=== PATIENT | female | born 1965 | race Caucasian/White ===

== ENCOUNTER 2022-02-18 01:43 | Emergency (ER) | payer SELFPAY ==
--- NOTE | 2022-02-18 01:34 | ECG_ITS ---
APPROVED REPORT Exam: Resting ECG HR:162 bpm ECG Measurements Heart Rate 162 AXES QRSd 78 QRS 89 QT 299 T 77 QTc 389 Conclusion SUPRAVENTRICULAR TACHYCARDIA NONSPECIFIC T-WAVE ABNORMALITY CRITICAL TEST RESULT UNCONFIRMED REPORT Electronically signed by : Navin Parra MD 02/18/2022 15:57:57
[2022-02-18 01:45] VITALS: BP 114/97; PULSE 150; RESP 34; TEMP 36.7; O2SAT 97; BMI 35.7
--- NOTE | 2022-02-18 01:46 | XR_ITS ---
PROCEDURE INFORMATION: Exam: XR Chest Exam date and time: 02/18/2022 1:54 AM Age: 56 years old Clinical indication: Shortness of breath; Additional info: Trouble breathing TECHNIQUE: Imaging protocol: XR of the chest. Views: 1 view. COMPARISON: No relevant prior studies available. FINDINGS: Lungs: Lordotic projection. No consolidation. No evidence of pulmonary volume overload. Pleural spaces: Unremarkable. No pleural effusion. No pneumothorax. Heart/Mediastinum: Unremarkable. No cardiomegaly. Bones/joints: Unremarkable. IMPRESSION: No acute findings.
[2022-02-18 02:12] LABS: Coronavirus 19, PCR Not Detected (NotDetected); Influenza A, PCR Not Detected (NotDetected); Influenza B, PCR Not Detected (NotDetected)
[2022-02-18 02:16] LABS: VBG Base Excess -2.3 mmol/L (-2.4-2.3); VBG HCO3 23.5 mmol/L (23-30); VBG Oxygen Saturation 98.7 % (50-70); VBG PCO2 44.2 mmol/L (35-51); VBG PH 7.34 mmol/L (7.31-7.41); VBG PO2 136.3 mmol/L (28-40); VBG Total CO2 24.8 mmol/L (23-27)
[2022-02-18 02:17] LABS: Basophils # 0.2 K/mm3 (0-0.2); Basophils % 1.1 % (0.1-2.0); Eosinophils # 0.4 K/mm3 (0.0-0.4); Eosinophils % 2.7 % (0.1-12.0); Hematocrit 46.6 % (37.0-47.0); Hemoglobin 15.2 g/dL (12.2-16.2); Lymphocytes # 2.5 K/mm3 (0.7-4.5); Lymphocytes % 15.4 % (10-50); Mean Corpuscular HGB Conc 32.6 g/dL (31.8-35.4); Mean Corpuscular Hemoglobin 29.6 pg (27.0-31.2); Mean Corpuscular Volume 90.9 fl (81-99); Mean Platelet Volume 7.5 fl (7.4-10.4); Monocytes # 0.8 K/mm3 (0.1-1.0); Monocytes % 4.9 % (1.7-9.3); Neutrophils # 12.4 K/mm3 (1.8-7.8); Neutrophils % 75.9 % (37.0-80.0); Platelet Count 480 K/mm3 (142-424); Red Blood Count 5.13 M/mm3 (4.20-5.40); Red Cell Distribution Width 12.5 % (11.5-17.5); White Blood Count 16.4 K/mm3 (4.8-10.8)
[2022-02-18 02:22] LABS: MANUAL DIFFERENTIAL MANUAL DIFFERENTIAL (MANUAL DIFF)
[2022-02-18 02:26] LABS: Alanine Aminotransferase 31 U/L (12-78); Albumin Level 4.5 g/dl (3.5-5.0); Albumin/Globulin Ratio 1.5 (1.1-1.8); Alkaline Phosphatase 76 U/L (38-126); Anion Gap 13.5 mEq/L (5-15); Aspartate Amino Transferase 29 U/L (14-36); Bilirubin,Total 0.4 mg/dl (0.2-1.3); Blood Urea Nitrogen 12 mg/dl (7-17); Calcium 8.7 mg/dl (8.4-10.2); Carbon Dioxide 26 mmol/L (22.0-30.0); Chloride 103 mmol/L (98-107); Creatinine Clearance Estimated 135 mL/min (50-200); Estimated Glomerular Filt Rate 75 ml/min (>60); GFR (African American) 90 ML/MIN (>60); Glucose 164 mg/dl (74-100); Potassium 3.5 mmoL/L (3.5-5.1); Sodium 139 mmol/L (136-145); Total Protein,Serum 7.5 g/dl (6.3-8.2)
[2022-02-18 02:30] VITALS: PULSE 83
[2022-02-18 02:30] LABS: Lymphocytes % 24 % (10-50); Monocytes % 1 % (2-9); Neutrophils % 73 % (42-76); Platelet Estimate Normal; RBC Morphology Normal; Total Cells Counted 100
--- NOTE | 2022-02-18 02:37 | HMH.EDGENADL ---
ED Disposition Clinical Impression: Asthma with exacerbation Disposition: Home, Self-Care Condition on Discharge: Fair Instructions: DI for Shortness of Breath Referrals: Navin Conde MD [Primary Care Provider] - - Critical Care Critical Care Time: Yes Attestation: On 02/18/22, the high probability of a clinically significant, sudden or life threatening deterioration of the following system(s) required my full and direct attention, intervention and personal management. The time I documented below is in addition to time spent performing reported procedures but includes the following listed in this critical care notation. Vital system(s) involved:: Respiratory Failure My critical care processes included: Assessment & monitoring of V/S, Initial and Re-exams, Data Review/Interpretation, Coordinating Care, Medication Orders and management, Documentation Medical Decision Making - Wally Inquiry Pt receiving controlled substance: No Vital Signs: 02/18/22 01:45 02/18/22 02:30 02/18/22 03:04 Temperature 98.1 F Temperature Source Temporal Artery Scan Pulse Rate 83 88 Pulse Rate [Right Brachial] 150 H Respiratory Rate 34 H Blood Pressure [Right Arm] 114/97 H Blood Pressure Mean [Right Arm] 102 Blood Pressure Source [Right Arm] Automatic Cuff Blood Pressure Position [Right Arm] Sitting 02 Sat by Pulse Oximetry 97 Oxygen Delivery Method Room Air 02/18/22 03:51 Temperature Temperature Source Pulse Rate 114 H Pulse Rate [Right Brachial] Respiratory Rate Blood Pressure [Right Arm] Blood Pressure Mean [Right Arm] Blood Pressure Source [Right Arm] Blood Pressure Position [Right Arm] 02 Sat by Pulse Oximetry Oxygen Delivery Method - Lab Data Lab Results 02/18/22 02:02: VBG pH 7.34, VBG pCO2 44.2, VBG pO2 136.3 H, VBG HCO3 23.5, VBG Total CO2 24.8, VBG O2 Saturation 98.7 H, VBG Base Excess -2.3 02/18/22 02:03: WBC 16.4 H, RBC 5.13, Hgb 15.2, Hct 46.6, MCV 90.9, MCH 29.6, MCHC 32.6, RDW 12.5, Plt Count 480 H, MPV 7.5, Neut % (Auto) 75.9, Lymph % (Auto) 15.4, [place] % (Auto) 4.9, Eos % (Auto) 2.7, Baso % (Auto) 1.1, Neut # (Auto) 12.4 H, Lymph # (Auto) 2.5, [place] # (Auto) 0.8, Eos # (Auto) 0.4, Baso # (Auto) 0.2, Total Counted 100, Neutrophils % (Manual) 73, Band Neutrophils % 2.0, Lymphocytes % (Manual) 24, Monocytes % (Manual) 1 L, Platelet Estimate Normal, RBC Morphology Normal 02/18/22 02:03: Sodium 139, Potassium 3.5, Chloride 103, Carbon Dioxide 26, Anion Gap 13.5, BUN 12, Creatinine 0.80, Estimated Creat Clear 135, Estimated GFR 75, Est GFR ( Amer) 90, Glucose 164 H, Calcium 8.7, Total Bilirubin 0.4, AST 29, ALT 31, Alkaline Phosphatase 76, Troponin I < 0.01, Total Protein 7.5, Albumin 4.5, Globulin 3.0, Albumin/Globulin Ratio 1.5 02/18/22 02:04: SARS-CoV-2 (PCR) Not detected, Influenza A Untype (PCR) Not detected, Influenza Type B (PCR) Not detected 02/18/22 04:33: Troponin I 0.02 Result diagrams: 02/18/22 02:03 02/18/22 02:03 Orders (Tests/Meds): ED MEDICATIONS Generic Name Dose Route Start Last Admin Trade Name Freq PRN Reason Stop Dose Admin Lactated Ringer's 1,000 mls @ 999 mls/hr 02/18/22 02:00 02/18/22 01:53 Lactated Ringer's 1000 Ml Bag IV 02/18/22 03:00 999 mls/hr .Q1H1M SHABNAM Administration Lactated Ringer's 1,000 mls @ 999 mls/hr 02/18/22 04:00 02/18/22 05:01 Lactated Ringer's 1000 Ml Bag IV 02/18/22 05:00 999 mls/hr .Q1H1M SHABNAM Administration Discontinued Medications Generic Name Dose Route Start Last Admin Trade Name Freq PRN Reason Stop Dose Admin Dexamethasone Sodium Phosphate 10 mg 02/18/22 01:46 02/18/22 01:53 Dexamethasone 4mg/Ml 5ml Mdv IV 02/18/22 01:47 10 mg ONCE ONE Administration Magnesium Sulfate 1 gm/ Sodium 52 mls @ 100 mls/hr 02/18/22 01:48 02/18/22 01:57 Chloride IV 02/18/22 02:19 100 mls/hr ONCE ONE Administration Magnesium Sulfate 1 gm/ Sodium 52 mls @ 100 mls/hr 02/18/22 03:58 02/18/22
[2022-02-18 02:38] LABS: Troponin I < 0.01 ng/ml (0.00-0.034)
[2022-02-18 03:04] VITALS: PULSE 88
[2022-02-18 03:51] VITALS: PULSE 110; PULSE 114
--- NOTE | 2022-02-18 04:03 | ECG_ITS ---
APPROVED REPORT Exam: Resting ECG HR:131 bpm ECG Measurements Heart Rate 131 AXES MO 142 P 69 QRSd 87 QRS 74 QT 351 T 33 QTc 428 Conclusion SINUS TACHYCARDIA NONSPECIFIC ST & T-WAVE ABNORMALITY ABNORMAL RHYTHM ECG UNCONFIRMED REPORT Electronically signed by : Navin Parra MD 02/18/2022 15:57:50
--- NOTE | 2022-02-18 04:08 | CT_ITS ---
PROCEDURE INFORMATION: Exam: CTA Chest With Contrast Exam date and time: 02/18/2022 5:27 AM Age: 56 years old Clinical indication: Shortness of breath and other: Tachycardia; Additional info: Tachycardia, shortness of breath, on estrogen ther TECHNIQUE: Imaging protocol: Computed tomographic angiography of the chest with contrast. 3D rendering (Not supervised by radiologist): MIP and/or 3D reconstructed images were created by the technologist. Radiation optimization: All CT scans at this facility use at least one of these dose optimization techniques: automated exposure control; mA and/or kV adjustment per patient size (includes targeted exams where dose is matched to clinical indication); or iterative reconstruction. Contrast material: ISOVUE 370; Contrast volume: 70 ml; Contrast route: INTRAVENOUS (IV); COMPARISON: CR XR CHEST PORTABLE 02/18/2022 1:54 AM FINDINGS: Pulmonary arteries: Normal. No pulmonary emboli. Aorta: Unremarkable. No aortic aneurysm. No aortic dissection. Lungs: Unremarkable. No consolidation. No masses. Pleural spaces: Unremarkable. No pneumothorax. No pleural effusion. Heart: Coronary atherosclerosis is present. Lymph nodes: Unremarkable. No enlarged lymph nodes. Bones/joints: Unremarkable. No acute fracture. Soft tissues: Unremarkable. IMPRESSION: 1. No evidence of pulmonary embolus or other acute process. 2. Coronary atherosclerosis.
[2022-02-18 04:59] LABS: Troponin I 0.02 ng/ml (0.00-0.034)
[2022-02-18 06:51] VITALS: BP 150/85; PULSE 118; RESP 22; TEMP 36.6; O2SAT 94
== END 2022-02-18 06:55 | disposition home or self-care (01) ==
PROVIDERS: Emergency Provider Student in an Organized Health Care Education/Training Program; PCP Family Medicine
DX: J45.901 Unspecified asthma with (acute) exacerbation (principal); Z88.8 Allergy status to other drugs, medicaments and biological substances
CPT/HCPCS: 71045; 71275; 80053; 82803; 84484; 85007; 85025; 93005; 96365; 96366; 96375; 99285; C9803; Q9967; U0003; U0005

== ENCOUNTER 2022-05-27 07:55 | Inpatient (IN) | payer OTHER, SELFPAY ==
[2022-05-27] VITALS (28 sets, daily range): BP systolic 99–140; BP diastolic 59–92; PULSE 78–142; RESP 17–36; TEMP 36.7–37.4; O2SAT 92–99; BMI 36.5; BMI 31.3; BMI 34.9
--- NOTE | 2022-05-27 | ECG_ITS ---
APPROVED REPORT Exam: Resting ECG HR:127 bpm ECG Measurements Heart Rate 127 AXES TX 127 P 76 QRSd 93 QRS 74 QT 349 T 65 QTc 424 Conclusion SINUS TACHYCARDIA ABNORMAL RHYTHM ECG UNCONFIRMED REPORT Electronically signed by : Navin Parra MD 05/27/2022 16:42:46
--- NOTE | 2022-05-27 07:57 | INFXCTL.NOTE ---
0757 PT BROUGHT IN VIA EMS. UNABLE TO ANSWER QUESTIONS AT THIS TIME. ED MD AT [facility] FOR EVALUATION AT THIS TIME
--- NOTE | 2022-05-27 08:05 | XR_ITS ---
FINAL REPORT CLINICAL HISTORY: SOB FINDINGS: SINGLE-VIEW CHEST The heart size is normal. The mediastinum is normal. The lungs are clear. There is no pneumothorax. IMPRESSION: No acute cardiopulmonary process. Reviewed, Interpreted and Dictated by Baljinder Carrizales III, MD Transcribed by Sommer Meadows Authenticated and [facility]
[2022-05-27 08:12] LABS: ABG Base Excess -2.6 mmol/L (-2.4-2.3); ABG HCO3 25.4 mmhg (22.0-26.0); ABG Oxygen Saturation 94 % (90-100); ABG PO2 93.4 mmhg (80-100); ABG TCO2 27.4 mmhg (23-27)
--- NOTE | 2022-05-27 08:13 | PC.NURSE ---
pt on bipap per ER MD request upon arrival to ED from EMS r/t resp distress
[2022-05-27 08:19] LABS: Basophils # 0.1 K/mm3 (0-0.2); Eosinophils % 7.7 % (0.1-12.0); Hematocrit 45.9 % (37.0-47.0); Hemoglobin 15.3 g/dL (12.2-16.2); Lymphocytes # 4.7 K/mm3 (0.7-4.5); Lymphocytes % 36.1 % (10-50); Mean Corpuscular HGB Conc 33.2 g/dL (31.8-35.4); Mean Corpuscular Hemoglobin 29.8 pg (27.0-31.2); Mean Corpuscular Volume 89.7 fl (81-99); Monocytes # 0.7 K/mm3 (0.1-1.0); Monocytes % 5.7 % (1.7-9.3); Neutrophils # 6.4 K/mm3 (1.8-7.8); Neutrophils % 49.5 % (37.0-80.0); Platelet Count 411 K/mm3 (142-424); Red Blood Count 5.12 M/mm3 (4.20-5.40); Red Cell Distribution Width 11.9 % (11.5-17.5); White Blood Count 12.9 K/mm3 (4.8-10.8)
--- NOTE | 2022-05-27 08:20 | PC.NURSE ---
RESPIRATORY AT BEDSIDE, PT REPORTS FEELING BETTER. C-PAP IN PLACE
[2022-05-27 08:23] LABS: ABG PCO2 66.2 mmhg (35.0-45.0); Allen's Test Acceptable; Oxygen 100 %; Source Left Radial
[2022-05-27 08:27] LABS: Alanine Aminotransferase 35 U/L (12-78); Albumin Level 4.1 g/dl (3.5-5.0); Albumin/Globulin Ratio 1.4 (1.1-1.8); Alkaline Phosphatase 76 U/L (38-126); Anion Gap 12.3 mEq/L (5-15); Aspartate Amino Transferase 40 U/L (14-36); Blood Urea Nitrogen 7 mg/dl (7-17); Calcium 8.8 mg/dl (8.4-10.2); Carbon Dioxide 28 mmol/L (22.0-30.0); Chloride 103 mmol/L (98-107); Creatinine Clearance Estimated 102 mL/min (50-200); Estimated Glomerular Filt Rate 65 ml/min (>60); GFR (African American) 79 ML/MIN (>60); Glucose 227 mg/dl (74-100); Potassium 4.3 mmoL/L (3.5-5.1); Sodium 139 mmol/L (136-145); Total Protein,Serum 7.1 g/dl (6.3-8.2)
[2022-05-27 08:28] LABS: Bilirubin,Total < 0.1 mg/dl (0.2-1.3); Lactic Acid 1.5 mmol/L (0.7-2.1)
--- NOTE | 2022-05-27 08:32 | PC.NURSE ---
pt mother at at this time
[2022-05-27 08:41] LABS: Troponin I < 0.01 ng/ml (0.00-0.034)
--- NOTE | 2022-05-27 08:53 | PC.NURSE ---
0845 CEV[address]OS PLACED AT THIS TIME, PT TOLERATED WELL. UA SENT TO LAB
--- NOTE | 2022-05-27 08:53 | PC.NURSE ---
0850 PT PLACED IN GOWN. PLAN OF CARE DISCUSSED. FAMILY AT BEDSIDE. NO NEEDS AT THIS TIME
--- NOTE | 2022-05-27 09:29 | PC.NURSE ---
ED MD AT BEDSIDE TO REEVALUATE PT
--- NOTE | 2022-05-27 09:37 | PC.NURSE ---
called physican office to contact CRISTÓBAL PATEL MD speaking to JORGE now
--- NOTE | 2022-05-27 09:40 | PC.NURSE ---
ED MD SPEAKING WITH DR. PATEL FOR ADMISSION, PT ACCEPTED
--- NOTE | 2022-05-27 09:43 | PC.NURSE ---
AARON WITH CARE MANAGEMENT NOTIFIED FOR PT ADMISSION
--- NOTE | 2022-05-27 09:46 | PC.NURSE ---
obtained covid swab
[2022-05-27 09:49] LABS: Coronavirus 19, PCR Not Detected (NotDetected); Influenza A, PCR Not Detected (NotDetected); Influenza B, PCR Not Detected (NotDetected)
--- NOTE | 2022-05-27 09:49 | HMH.EDGENADL ---
ED Disposition Clinical Impression: Asthma with exacerbation Disposition: Admitted As Inpatient Condition on Discharge: Fair Referrals: Millicent Ceron MD [Primary Care Provider] - - Critical Care Critical Care Time: Yes (40 minutes) Attestation: On 05/27/22, the high probability of a clinically significant, sudden or life threatening deterioration of the following system(s) required my full and direct attention, intervention and personal management. The time I documented below is in addition to time spent performing reported procedures but includes the following listed in this critical care notation. Total Critical Care Time: 60 Vital system(s) involved:: Respiratory Failure My critical care processes included: Assessment & monitoring of V/S, Initial and Re-exams, Data Review/Interpretation, Coordinating Care, Medication Orders and management, Documentation Medical Decision Making - Medical Records Medical records reviewed: Yes: I reviewed the patient's medical records. - Wally Inquiry Pt receiving controlled substance: No Vital Signs: 05/27/22 08:00 05/27/22 08:01 05/27/22 08:05 Temperature Temperature Source Pulse Rate 142 H 132 H Pulse Rate [Brachial] 134 H Respiratory Rate 36 H Blood Pressure Blood Pressure [Left Arm] 119/88 Blood Pressure Mean Blood Pressure Mean [Left Arm] 98 Blood Pressure Source Blood Pressure Source [Left Arm] Automatic Cuff Blood Pressure Position Blood Pressure Position [Left Arm] Sitting 02 Sat by Pulse Oximetry 99 98 Oxygen Delivery Method BiPAP CPAP 05/27/22 08:30 05/27/22 08:37 05/27/22 08:50 Temperature 99.4 F Temperature Source Rectal Pulse Rate 136 H 136 H 130 H Pulse Rate [Brachial] Respiratory Rate 22 28 H Blood Pressure 140/92 H 140/92 H Blood Pressure [Left Arm] Blood Pressure Mean 106 Blood Pressure Mean [Left Arm] Blood Pressure Source Automatic Cuff Blood Pressure Source [Left Arm] Blood Pressure Position Sitting Blood Pressure Position [Left Arm] 02 Sat by Pulse Oximetry 99 99 Oxygen Delivery Method CPAP 05/27/22 09:01 05/27/22 09:30 Temperature Temperature Source Pulse Rate 124 H 123 H Pulse Rate [Brachial] Respiratory Rate 22 18 Blood Pressure 113/88 126/89 Blood Pressure [Left Arm] Blood Pressure Mean 98 104 Blood Pressure Mean [Left Arm] Blood Pressure Source Blood Pressure Source [Left Arm] Blood Pressure Position Blood Pressure Position [Left Arm] 02 Sat by Pulse Oximetry 98 96 Oxygen Delivery Method - Lab Data Lab results reviewed: Yes: I reviewed the patient's lab results. Lab Results 05/27/22 08:10: WBC 12.9 H, RBC 5.12, Hgb 15.3, Hct 45.9, MCV 89.7, MCH 29.8, MCHC 33.2, RDW 11.9, Plt Count 411, MPV 7.0 L, Neut % (Auto) 49.5, Lymph % (Auto) 36.1, [place] % (Auto) 5.7, Eos % (Auto) 7.7, Baso % (Auto) 1.0, Neut # (Auto) 6.4, Lymph # (Auto) 4.7 H, [place] # (Auto) 0.7, Eos # (Auto) 1.0 H, Baso # (Auto) 0.1 05/27/22 08:10: Sodium 139, Potassium 4.3, Chloride 103, Carbon Dioxide 28, Anion Gap 12.3, BUN 7, Creatinine 0.90, Estimated Creat Clear 102, Estimated GFR 65, Est GFR ( Amer) 79, Glucose 227 H, Calcium 8.8, Total Bilirubin < 0.1 L, AST 40 H, ALT 35, Alkaline Phosphatase 76, Troponin I < 0.01, Total Protein 7.1, Albumin 4.1, Globulin 3.0, Albumin/Globulin Ratio 1.4 05/27/22 08:10: Lactate 1.5 05/27/22 08:10: Specimen Source Left radial, O2 % 100, ABG pH 7.20 L*, ABG pCO2 66.2 H, ABG pO2 93.4, ABG HCO3 25.4, ABG Total CO2 27.4 H, ABG O2 Saturation 94, ABG Base Excess -2.6 L, Ronald Test Acceptable 05/27/22 08:10: NT-Pro-B Natriuret Pep 40.0 Result diagrams: 05/27/22 08:10 05/27/22 08:10 Orders (Tests/Meds): ED MEDICATIONS Generic Name Dose Route Start Last Admin Trade Name Freq PRN Reason Stop Dose Admin Sodium Chloride 10 ml 05/27/22 08:08 Sodium Chloride 0.9% 10ml Flush Syringe IV 06/26/22 08:07 NEEDED PRN Maintain IV Site
--- NOTE | 2022-05-27 10:18 | HMH.PHAINT ---
MEDICATION RECONCILIATION COMPLETED ON PATIENT USING EXTERNAL FILL HISTORY FROM PHARMACY. -PAOLA CARTER, JENSD
[2022-05-27 10:33] LABS: Microscopic, Urine URINE MICROSCOPIC (MICROSCOPIC)
[2022-05-27 10:37] LABS: Appearance,Urine CLEAR (Clear); Bilirubin,Urine Negative (Negative); Blood, Urine Negative (Negative); Color,Urine YELLOW (Yellow); Glucose,Urine (UA) Negative (Negative); Ketones,Urine Negative (Negative); Leukocyte Esterase,Urine Negative (Negative); Nitrate,Urine POSITIVE (Negative); Protein,Urine 2+ (Negative); Specific Gravity, Urine >= 1.030 (1.005-1.030); Urobilinogen,Urine 0.2 EU/dl (0.2)
--- NOTE | 2022-05-27 10:55 | PC.NURSE ---
RT called per ER MD request to start to try to wean pt off of bipap, pt is waking up and has been talking
--- NOTE | 2022-05-27 11:00 | PC.NURSE ---
RESPIRATORY AT BEDSIDE
[2022-05-27 11:04] LABS: Bacteria,Urine 1+ /lpf; Squamous Epithelial Cell,Urine Occasional #/hpf (0-5); WBC,Urine Occasional #/hpf (0-3)
--- NOTE | 2022-05-27 11:05 | PC.NURSE ---
pt currently on 3L per NC at this time per RT staff
--- NOTE | 2022-05-27 11:35 | PC.NURSE ---
1135 PT RESTING IN BED, O2 AT 3L/NC. TOLERATING WELL. FAMILY AT BEDSIDE. UPDATED ON POC. CALL LIGHT WITHIN REACH
[2022-05-27 12:20] LABS: Troponin I 0.12 ng/ml (0.00-0.034)
--- NOTE | 2022-05-27 12:23 | PC.NURSE ---
rounded on pt at this time, assisted pt to sit up to be able to drink some water. Pt states no other needs at this time. Updated pt that we are still waiting on a room assignment for admission for pt. Will notify when a room assignment has been given
--- NOTE | 2022-05-27 14:11 | PC.NURSE ---
ATTEMPTED TO GIVE REPORT AT THIS TIME, UNABLE TO AT THIS TIME
--- NOTE | 2022-05-27 14:24 | PC.NURSE ---
report given to joann buck rn at this time
--- NOTE | 2022-05-27 14:35 | PC.NURSE ---
Updated mother and pt on POC. Report had been called and pt would be going up to room shortly.
--- NOTE | 2022-05-27 14:43 | PC.NURSE ---
PT BEING TRANSPORTED UPSTAIRS FOR IN-PATIENT TREATMENT
--- NOTE | 2022-05-27 15:10 | HMH.HP ---
*Admission Date: 05/27/22 *Chief complaint: Shortness of breath *History of present illness: Sonam Molina is a 56-year-old with a history of asthma who presented to the emergency room extremely short of breath. She states her breathing difficulties began about a week ago with increased air pollen. Usually using her inhaler adequately treats the exacerbation. Patient denies having chest pain. She has occasional palpitations with the use of her albuterol. Patient was brought in by EMS and symptoms were described as being severe. They used CPAP in route with only minimal improvement.Duo nebs were also administered prior to ED arrival. She appeared in severe distress upon arrival to the ER. She could only speak in one-word responses. She was gradually weaned to oxygen at 3 L/min. She was found to have a fever At 99.4. Laboratory results showed a white blood cell count of 12,900. ABGs revealed a pH of 7.2 PCO2 of 66.2 PO2 of 93.4 and bicarb of 25.4. Electrolytes and renal function were normal. Chest x-ray showed no acute process. She was admitted with respiratory failure. At the time of this exam patient does exhibit some dyspnea with conversation. She denies chest pain. She feels that she is breathing better. [facility] History Medical History: Reports:: Asthma Denies:: Diabetes Mellitus Type 1, Diabetes Mellitus Type 2 *Have you ever received a pneumonia vaccine?: Yes *Have you received a flu vaccine this season?: Yes - *Social History Smoking Status: Never smoker Alcohol Intake: never *Occupational Status:: disabled Housing: house Household Members: family *Travel in the last 8 weeks: None Family Hx:: Heart Attack Review of Systems - Constitutional Denies fever(s) - Eyes Denies change in vision - ENT Reports nasal congestion, Denies dizziness, Denies ear pain, Denies sore throat - *Cardiovascular Reports shortness of breath, Denies chest pain - *Respiratory Reports chest congestion, Reports cough, Reports shortness of breath, Denies coughing up blood - *Gastrointestinal Denies abdominal pain, Denies loose stools, Denies nausea, Denies vomiting - *Genitourinary Denies difficulty urinating - *Musculoskeletal Denies abnormal walking - *Neurologic Denies abnormal walking, Denies abnormal speech, Denies confusion, Denies seizure-like activity, Denies dizziness Meds Home Medications Medication Instructions Recorded Confirmed Type Albuterol Sulfate [Albuterol 2 puff IH Q4HP PRN 05/27/22 05/27/22 History Sulfate Hfa] Estrogens, Conjugated [Premarin] 2.5 mg PO DAILY 05/27/22 05/27/22 History Medroxyprogesterone Acetate 10 mg PO DIRECTED 05/27/22 05/27/22 History Mometasone/Formoterol [Dulera 200 2 puff IH BID 05/27/22 05/27/22 History Mcg/5 Mcg Inhaler] atenoloL [Atenolol 50mg Tab] 100 mg PO DAILY 05/27/22 05/27/22 History Allergies Allergy/AdvReac Type Severity Reaction Status Date / Time aspirin Allergy Unknown Unknown Verified 05/27/22 10:28 allergy reaction ibuprofen Allergy Unknown Unknown Verified 05/27/22 10:28 allergy reaction montelukast [From Singulair] Allergy Unknown Unknown Verified 05/27/22 10:28 allergy reaction NSAIDS (Non-Steroidal Allergy Unknown Unknown Verified 05/27/22 10:28 Anti-Inflamma allergy reaction TRENALIN Allergy Unknown Unknown Uncoded 05/27/22 10:28 allergy reaction Exam Vital signs and Labs for Last 24 Hours: Temp Pulse Resp BP Pulse Ox 98.0 F 94 H 17 115/59 L 96 05/27/22 14:56 05/27/22 14:56 05/27/22 14:56 05/27/22 14:56 05/27/22 14:56 Laboratory Results - last 24 hr 05/27/22 08:10: WBC 12.9 H, RBC 5.12, Hgb 15.3, Hct 45.9, MCV 89.7, MCH 29.8, MCHC 33.2, RDW 11.9, Plt Count 411, MPV 7.0 L, Neut % (Auto) 49.5, Lymph % (Auto) 36.1, [place] % (Auto) 5.7, Eos % (Auto) 7.7, Baso % (Auto) 1.0, Neut # (Auto) 6.4, Lymph # (Auto) 4.7 H, [place] # (Auto) 0.7, Eos # (Auto) 1.0 H, Baso # (Auto) 0.1 0
--- NOTE | 2022-05-27 16:30 | PC.NURSE ---
PT IS RESTING IN BED. NO COMPLAINTS OF PAIN OR SOA. PT DOES APPEAR SOMEWHAT DYSNEIC WHILE TALKING. ALERT AND ORIENTED X4. PT HAS REQUESTED TO EAT. REGULAR DIET ORDERED PER PHYSICIAN. LUNG SOUNDS DIMINISHED WITH SCATTERED WHEEZES. CATHETER DRAINING AT BEDSIDE. ABDOMEN SOFT/NON TENDER WITH ACTIVE BOWEL SOUNDS. NO SWELLING NOTED TO BLE. WILL CONTINUE TO MONITOR.
[2022-05-28] VITALS (10 sets, daily range): BP systolic 119–157; BP diastolic 67–94; PULSE 74–104; RESP 16–18; TEMP 36.5–37.1; O2SAT 90–98
--- NOTE | 2022-05-28 06:00 | XR_ITS ---
FINAL REPORT CLINICAL HISTORY: SOB COMPARISON: May 27, 2022 FINDINGS: Two views of the chest were obtained. The heart size and pulmonary vascularity are within normal limits. The mediastinum is normal. No acute pulmonary abnormality is identified. There is no pneumothorax. The bony thorax is intact. IMPRESSION: No active cardiopulmonary disease. Reviewed, Interpreted and Dictated by Baljinder Carrizales III, MD Transcribed by Baldomero Coelho Authenticated and [facility]
--- NOTE | 2022-05-28 06:00 | PC.NURSE ---
Patient rested throughout shift. Patient complaint of SOB at start of shift prn nebs added see jan. Expiatory ad inspiratory wheezing noted. Patient sating well on 3l nc. Patient seems to be doing much better. Ramon cath in place.
[2022-05-28 06:42] LABS: Eosinophils % 0.1 % (0.1-12.0); Hematocrit 42.4 % (37.0-47.0); Hemoglobin 13.9 g/dL (12.2-16.2); Lymphocytes # 0.8 K/mm3 (0.7-4.5); Lymphocytes % 5.4 % (10-50); Mean Corpuscular HGB Conc 32.8 g/dL (31.8-35.4); Mean Corpuscular Hemoglobin 29.4 pg (27.0-31.2); Mean Corpuscular Volume 89.5 fl (81-99); Mean Platelet Volume 6.9 fl (7.4-10.4); Monocytes # 0.4 K/mm3 (0.1-1.0); Monocytes % 2.3 % (1.7-9.3); Neutrophils # 13.9 K/mm3 (1.8-7.8); Neutrophils % 92.1 % (37.0-80.0); Platelet Count 327 K/mm3 (142-424); Red Blood Count 4.74 M/mm3 (4.20-5.40); Red Cell Distribution Width 12.1 % (11.5-17.5); White Blood Count 15.1 K/mm3 (4.8-10.8)
[2022-05-28 06:43] LABS: MANUAL DIFFERENTIAL MANUAL DIFFERENTIAL (MANUAL DIFF)
[2022-05-28 06:50] LABS: Alanine Aminotransferase 34 U/L (12-78); Albumin Level 3.7 g/dl (3.5-5.0); Albumin/Globulin Ratio 1.3 (1.1-1.8); Alkaline Phosphatase 63 U/L (38-126); Aspartate Amino Transferase 39 U/L (14-36); Blood Urea Nitrogen 10 mg/dl (7-17); Carbon Dioxide 28 mmol/L (22.0-30.0); Chloride 103 mmol/L (98-107); Creatinine Clearance Estimated 142 mL/min (50-200); Estimated Glomerular Filt Rate 87 ml/min (>60); GFR (African American) 106 ML/MIN (>60); Globulin 2.9 g/dL (1.3-3.2); Glucose 150 mg/dl (74-100); Sodium 137 mmol/L (136-145); Total Protein,Serum 6.6 g/dl (6.3-8.2)
[2022-05-28 06:54] LABS: Bilirubin,Total < 0.1 mg/dl (0.2-1.3)
[2022-05-28 06:55] LABS: Lymphocytes % 10 % (10-50); Neutrophils % 90 % (42-76); Total Cells Counted 100
[2022-05-28 06:56] LABS: Platelet Estimate Normal
--- NOTE | 2022-05-28 07:20 | ECG_ITS ---
APPROVED REPORT Exam: Resting ECG HR:102 bpm ECG Measurements Heart Rate 102 AXES W[place] 143 P 50 QRSd 94 QRS 45 QT 409 T 18 QTc 468 Conclusion SINUS TACHYCARDIA POSSIBLE INFERIOR MYOCARDIAL INFARCTION , PROBABLY OLD [30 ms Q WAVE IN II/aVF] ABNORMAL RHYTHM ECG UNCONFIRMED REPORT Electronically signed by : Navin Parra MD 05/29/2022 21:04:09
--- NOTE | 2022-05-28 07:22 | HMH.PHAVTE ---
[facility] Pharmacy VTE Monitoring - Patient Demographics Admission date: 05/27/22 Report Date: 05/28/22 Time: : Allergies/Adverse Reactions: Patient Allergies aspirin Allergy (Unknown, Verified 05/27/22 10:28) Unknown allergy reaction ibuprofen Allergy (Unknown, Verified 05/27/22 10:28) Unknown allergy reaction montelukast [From Singulair] Allergy (Unknown, Verified 05/27/22 10:28) Unknown allergy reaction NSAIDS (Non-Steroidal Anti-Inflamma Allergy (Unknown, Verified 05/27/22 10:28) Unknown allergy reaction Fish Containing Products Allergy (Verified 05/27/22 17:24) TRENALIN Allergy (Unknown, Uncoded 05/27/22 10:28) Unknown allergy reaction Height: 1.68 m Weight: 98.174 kg Patient Problems: Current Active Problems Asthma with exacerbation (Acute) Respiratory failure (Acute) - VTE Risk Labs: VTE Related Lab Results Hgb 13.9 g/dL (12.2-16.2) 05/28/22 06:12 Hct 42.4 % (37.0-47.0) 05/28/22 06:12 Plt Count 327 K/mm3 (142-424) 05/28/22 06:12 BUN 10 mg/dl (7-17) D 05/28/22 06:12 Creatinine 0.70 mg/dl (0.52-1.04) D 05/28/22 06:12 Estimated Creat Clear 142 mL/min (50-200) 05/28/22 06:12 VTE Score: 4 VTE Risk Level: Low Risk - Prophylaxis VTE Prophylaxis Ordered?: Yes Types of VTE Prophylaxis: TEDS Knee High, Pharmacological Location of Applied Device: Bilateral Lower Extremeties Pharmacologic Type: Enoxaparin
[2022-05-28 07:54] LABS: Troponin I 0.08 ng/ml (0.00-0.034)
--- NOTE | 2022-05-28 09:25 | CA_ITS ---
APPROVED REPORT EXAM: Comprehensive 2D, Doppler, and color-flow Echocardiogram Millinery Copyist: Bisi Fuentes RT(R) Ht: 5 ft 6 in Wt: 216lbs BSA: 2.07 BP: 115/59 mmHg Indications: SOA, HTN, Obesity, asthma, dizziness 2D Dimensions LVOT 1.86 cm (M/F) 1.5-2.5 LVEF (Richards's) 63.80 % F: 54 - 74 LV Volume 89.00 mL F: 46 - 106 LV Volume Index 43.20 mL/m2 F: 29 - 61 LA Volume 17.70 mL LA Volume Index 8.59 mL/m2 (M/F) 16-34 M-Mode Dimensions RVDd 2.89 cm (0.9-2.6) LA Diam 3.15 cm (1.9-4.0) LVDd 4.05 cm (3.5-5.7) Ao Diam 2.78 cm (2.0-3.7) LVDs 2.37 cm (3.5-5.7) IVSd 0.96 cm (0.6-1.1) PWd 1.00 cm (0.6-1.1) EF (Teich) 73.00% FS 41.50% EDV (Teich) 72.10 mL ESV (Teich) 19.50 mL LV Diastology E Decel Time 203.00 (160-240 msec) E/A Ratio 0.8 MED E' 9.40 (< 7 cm/sec) E'/MED E' Ratio 11.52 (>14) Mitral Valve MV E Max Daquan. 108.00 (40-130 cm/s) MV A Velocity 143.00 (40-130 cm/s) E/A Ratio 0.76 MV Decel. Time 203.00 (160-240 ms) MV PHT 60.00 ms Left Ventricle Left atrium is mildly enlarged, left ventricle is normal size, mild concentric left ventricular hypertrophy, estimated ejection fraction 55% with no regional wall motion abnormality, grade 1 diastolic dysfunction seen without tissue Doppler evidence of raise left atrial pressure. Right Ventricle Right atrium and right ventricle are mildly enlarged with normal contractility. Aortic Valve Aortic valve is minimally thickened and fibrosed there is no aortic stenosis or aortic insufficiency. Mitral Valve Mitral valve grossly normal, there is trace mitral regurgitation. Tricuspid Valve Tricuspid valve grossly normal, there is trace tricuspid regurgitation, tricuspid regurgitation jet velocity is inadequate for calculation of the right ventricular systolic pressure. Pulmonic Valve Pulmonic valve is poorly visualized. Great Vessels Aortic root is normal size. Inferior vena cava is poorly visualized. Pericardium No significant pericardial effusion noted. Conclusion 1. Mild biatrial enlargement, normal left ventricular size, mild concentric left ventricular hypertrophy, estimated ejection fraction 55% with no regional wall motion abnormality, grade 1 diastolic dysfunction seen without tissue Doppler evidence of raise left atrial pressure. 2. Mildly enlarged right ventricle with normal contractility. 3. Trace mitral and tricuspid regurgitation. 4. No significant pericardial effusion. 5. Inferior vena cava is poorly visualized. Electronically signed by : Delta Weston MD 05/28/2022 21:15:12
--- NOTE | 2022-05-28 09:28 | HMH.PULMCON ---
*Admission Date: 05/27/22 *Reason for consult:: Acute hypoxic respiratory failure, asthma exacerbation *History of present illness: Patient's prefers to identify as she her Ms. HE is a 56-year-old female with a prior history of asthma presented to the ER complaining of worsening respiratory distress low-grade fever leukocytosis respiratory acidosis. History of asthma with acute exacerbation, symptoms for the last 4 to 5 days gradually worsening, slightly improved with inhalers at ambulation treatments however not significantly improving. Symptoms worsens with exertion. [facility] History Medical History: Reports:: Asthma Denies:: Diabetes Mellitus Type 1, Diabetes Mellitus Type 2 *Have you ever received a pneumonia vaccine?: Yes *Have you received a flu vaccine this season?: Yes - *Social History Smoking Status: Never smoker Alcohol Intake: never *Occupational Status:: disabled Housing: house Household Members: family *Travel in the last 8 weeks: None Family Hx:: Heart Attack Meds Home Medications Medication Instructions Recorded Confirmed Type Albuterol Sulfate [Albuterol 2 puff IH Q4HP PRN 05/27/22 05/27/22 History Sulfate Hfa] Estrogens, Conjugated [Premarin] 2.5 mg PO DAILY 05/27/22 05/27/22 History Medroxyprogesterone Acetate 10 mg PO DIRECTED 05/27/22 05/27/22 History Mometasone/Formoterol [Dulera 200 2 puff IH BID 05/27/22 05/27/22 History Mcg-5 Mcg Inhaler] atenoloL [Atenolol 50mg Tab] 100 mg PO DAILY 05/27/22 05/27/22 History diphenhydrAMINE HCL [Benadryl] 50 mg PO Q4HP PRN 05/27/22 05/27/22 History Ipratropium/Albuterol Sulfate 3 ml IH Q6H #120 each 06/01/22 Rx [Duoneb 3mL neb] levoFLOXacin [Levaquin 750mg 750 mg PO DAILY #5 tab 06/01/22 Rx tablet] predniSONE [Prednisone 20mg 20 mg PO DIRECTED #36 tab 06/01/22 Rx Tab] Allergies Allergy/AdvReac Type Severity Reaction Status Date / Time aspirin Allergy Unknown Unknown Verified 05/27/22 10:28 allergy reaction ibuprofen Allergy Unknown Unknown Verified 05/27/22 10:28 allergy reaction montelukast [From Singulair] Allergy Unknown Unknown Verified 05/27/22 10:28 allergy reaction NSAIDS (Non-Steroidal Allergy Unknown Unknown Verified 05/27/22 10:28 Anti-Inflamma allergy reaction Fish Containing Products Allergy Verified 05/27/22 17:24 TRENALIN Allergy Unknown Unknown Uncoded 05/27/22 10:28 allergy reaction Internal Medicine - CN: Reslt - Labs CBC & Chem 7: 05/28/22 06:12 05/28/22 06:12 Labs: Short CBC 05/28/22 Range/Units 06:12 WBC 15.1 H (4.8-10.8) K/mm3 Hgb 13.9 (12.2-16.2) g/dL Hct 42.4 (37.0-47.0) % Plt Count 327 (142-424) K/mm3 BMP 05/28/22 06:12 Sodium 137 Potassium 4.0 Chloride 103 Carbon Dioxide 28 BUN 10 D Creatinine 0.70 D Glucose 150 H D Calcium 9.0 Cardiac Enzymes 05/27/22 05/28/22 Range/Units 11:45 06:12 Troponin I 0.12 H 0.08 H (0.00-0.034) ng/ml Liver Function 05/28/22 Range/Units 06:12 Total Bilirubin < 0.1 L (0.2-1.3) mg/dl AST 39 H (14-36) U/L ALT 34 (12-78) U/L Alkaline Phosphatase 63 (38-126) U/L Albumin 3.7 (3.5-5.0) g/dl Urine 05/27/22 Range/Units 08:45 Urine Color Yellow (Yellow) Urine Appearance Clear (Clear) Urine pH 5.0 (5.0-8.5) Ur Specific [place] >= 1.030 (1.005-1.030) Urine Protein 2+ (Negative) Urine Glucose (UA) Negative (Negative) - ABG Interpretation ABG results: 05/27/22 08:10 ABG pH 7.20 L* ABG pCO2 66.2 H ABG pO2 93.4 ABG HCO3 25.4 ABG Total CO2 27.4 H ABG O2 Saturation 94 ABG Base Excess -2.6 L Assessment and Plan (1) Respiratory failure Status: Acute Category: Medical Code(s): J96.90 - Respiratory failure, unspecified, unspecified whether with hypoxia or hypercapnia (2) Asthma with exacerbation Status: Acute Category: Medical Code(s): J45.901 - Unspecifi
--- NOTE | 2022-05-28 09:36 | HMH.CNCARD ---
History of Present Illness Consult date: 05/28/22 Requesting physician: Ck Luciano Consult reason: shortness of breath Chief complaint: soa, elevated trop, asthma exacerbation Additional Medical History:: Past Medical Hx Identifies as transgender, uses she/her pronouns Asthma History of present illness: 56 year old white transgender female presented to hospital yesterday with complaint of acute asthma exacerbation. Reports long hx of severe asthma requiring multiple hospital admissions. States she began to have soa and increased wheezing a week ago which she attributes to increase pollen. Became more severe yesterday requiring EMS transport to hospital. Upon presentation patient was requiring cpap. Temp was 99.4, WBC was 12,900, ABGs pH 7.2, PCO2 66.2, Po2 93.4, bicarb 25.4. Chest xray was negative for acute process. Trop was elevated at 0.12 and has since trended down to 0.08. EKG negative for ischemic changes. Cardiology was asked to consult for elevated trop. Patient denies any chest pain, states this is like previous asthma attacks. Currently resting comfortably on GA. [facility] History Medical History: Reports:: Asthma Denies:: Diabetes Mellitus Type 1, Diabetes Mellitus Type 2 *Have you ever received a pneumonia vaccine?: Yes *Have you received a flu vaccine this season?: Yes - *Social History Smoking Status: Never smoker Alcohol Intake: never *Occupational Status:: disabled Housing: house Household Members: family *Travel in the last 8 weeks: None Family Hx:: Heart Attack Meds Home Medications Medication Instructions Recorded Confirmed Type Albuterol Sulfate [Albuterol 2 puff IH Q4HP PRN 05/27/22 05/27/22 History Sulfate Hfa] Estrogens, Conjugated [Premarin] 2.5 mg PO DAILY 05/27/22 05/27/22 History Medroxyprogesterone Acetate 10 mg PO DIRECTED 05/27/22 05/27/22 History Mometasone/Formoterol [Dulera 200 2 puff IH BID 05/27/22 05/27/22 History Mcg/5 Mcg Inhaler] atenoloL [Atenolol 50mg Tab] 100 mg PO DAILY 05/27/22 05/27/22 History diphenhydrAMINE HCL [Benadryl] 50 mg PO Q4HP PRN 05/27/22 05/27/22 History Allergies Allergy/AdvReac Type Severity Reaction Status Date / Time aspirin Allergy Unknown Unknown Verified 05/27/22 10:28 allergy reaction ibuprofen Allergy Unknown Unknown Verified 05/27/22 10:28 allergy reaction montelukast [From Singulair] Allergy Unknown Unknown Verified 05/27/22 10:28 allergy reaction NSAIDS (Non-Steroidal Allergy Unknown Unknown Verified 05/27/22 10:28 Anti-Inflamma allergy reaction Fish Containing Products Allergy Verified 05/27/22 17:24 TRENALIN Allergy Unknown Unknown Uncoded 05/27/22 10:28 allergy reaction Exam Vital signs and Labs for Last 24 Hours: Temp Pulse Resp BP Pulse Ox 98.1 F 99 H 18 130/78 94 L 05/28/22 07:17 05/28/22 07:17 05/28/22 07:17 05/28/22 07:17 05/28/22 07:17 Laboratory Results - last 24 hr 05/27/22 08:45: Urine Color Yellow, Urine Appearance Clear, Urine pH 5.0, Ur Specific [place] >= 1.030, Urine Protein 2+, Urine Glucose (UA) Negative, Urine Ketones Negative, Urine Blood Negative, Urine Nitrate Positive, Urine Bilirubin Negative, Urine Urobilinogen 0.2, Ur Leukocyte Esterase Negative, Urine RBC None, Urine WBC Occasional, Ur Squamous Epith Cells Occasional, Urine Bacteria 1+ 05/27/22 09:41: SARS-CoV-2 (PCR) Not detected, Influenza A Untype (PCR) Not detected, Influenza Type B (PCR) Not detected 05/27/22 11:45: Troponin I 0.12 H 05/28/22 06:12: WBC 15.1 H, RBC 4.74, Hgb 13.9, Hct 42.4, MCV 89.5, MCH 29.4, MCHC 32.8, RDW 12.1, Plt Count 327, MPV 6.9 L, Neut % (Auto) 92.1 H, Lymph % (Auto) 5.4 L, [place] % (Auto) 2.3, Eos % (Auto) 0.1, Baso % (Auto) 0.0 L, Neut # (Auto) 13.9 H, Lymph # (Auto) 0.8, [place] # (Auto) 0.4, Eos # (Auto) 0.0, Baso # (Auto) 0.0, Total Counted 100, Neutrophils % (Manual) 90 H, Lymphocytes % (Manual) 10, Platelet Estimate Normal 05/28/22 06:12: Sodium 137
--- NOTE | 2022-05-28 09:39 | PC.NURSE ---
RESP CARE NOTE: Pt placed on room air, SPO2 at 98% on 3 lpm nc via oral airway. Will continue to monitor patient.
--- NOTE | 2022-05-28 09:51 | CA_ITS ---
FINAL REPORT CLINICAL HISTORY: soa, DVT r/o FINDINGS: Color Doppler, duplex Doppler and compression sonography of the bilateral lower extremities was performed. There is no evidence of deep venous thrombosis from the level of the groin to the calf. The deep veins are patent and compressible. IMPRESSION: No evidence of deep venous thrombosis bilateral lower extremities. Reviewed, Interpreted and Dictated by Baljinder Carrizales III, MD Transcribed by Nayely Solano Authenticated and [facility]
--- NOTE | 2022-05-28 10:13 | HMH.ACPN2 ---
Internal Medicine - PN: Subj *Date: 05/28/22 *Time: 10:13 Interval history: Patient slept some last night. The Benadryl really helped his drainage which allowed him to rest better. He is wheezing more today. He states this is due to all the pollen in the air outside. He was able to eat breakfast.Repeat laboratory data this morning CBC with a white blood cell count of 15,100 hemoglobin is 13.9 hematocrit 42.4. Blood chemistries electrolytes and renal function are normal. Repeat chest x-ray this morning showed no acute changes. Exam Vital signs and Labs for Last 24 Hours: Temp Pulse Resp BP Pulse Ox 98.1 F 77 18 130/78 98 05/28/22 07:17 05/28/22 09:37 05/28/22 07:17 05/28/22 07:17 05/28/22 09:37 Laboratory Results - last 24 hr 05/27/22 08:45: Urine Color Yellow, Urine Appearance Clear, Urine pH 5.0, Ur Specific [place] >= 1.030, Urine Protein 2+, Urine Glucose (UA) Negative, Urine Ketones Negative, Urine Blood Negative, Urine Nitrate Positive, Urine Bilirubin Negative, Urine Urobilinogen 0.2, Ur Leukocyte Esterase Negative, Urine RBC None, Urine WBC Occasional, Ur Squamous Epith Cells Occasional, Urine Bacteria 1+ 05/27/22 09:41: SARS-CoV-2 (PCR) Not detected, Influenza A Untype (PCR) Not detected, Influenza Type B (PCR) Not detected 05/27/22 11:45: Troponin I 0.12 H 05/28/22 06:12: WBC 15.1 H, RBC 4.74, Hgb 13.9, Hct 42.4, MCV 89.5, MCH 29.4, MCHC 32.8, RDW 12.1, Plt Count 327, MPV 6.9 L, Neut % (Auto) 92.1 H, Lymph % (Auto) 5.4 L, [place] % (Auto) 2.3, Eos % (Auto) 0.1, Baso % (Auto) 0.0 L, Neut # (Auto) 13.9 H, Lymph # (Auto) 0.8, [place] # (Auto) 0.4, Eos # (Auto) 0.0, Baso # (Auto) 0.0, Total Counted 100, Neutrophils % (Manual) 90 H, Lymphocytes % (Manual) 10, Platelet Estimate Normal 05/28/22 06:12: Sodium 137, Potassium 4.0, Chloride 103, Carbon Dioxide 28, Anion Gap 10.0, BUN 10 D, Creatinine 0.70 D, Estimated Creat Clear 142, Estimated GFR 87, Est GFR ( Amer) 106 D, Glucose 150 H D, Calcium 9.0, Total Bilirubin < 0.1 L, AST 39 H, ALT 34, Alkaline Phosphatase 63, Total Protein 6.6, Albumin 3.7, Globulin 2.9, Albumin/Globulin Ratio 1.3 05/28/22 06:12: Troponin I 0.08 H I & O for Last 24 hours: Intake & Output 05/25/22 05/26/22 05/27/22 05/28/22 11:59 11:59 11:59 11:59 Intake Total 840 / 840 Output Total 2620 / 2620 Balance -1780 / -1780 Weight 200 lb 216 lb 7 oz - Constitutional no acute distress - *Routine Respiratory Exam Present: wheezes (Inspiratory and expiratory scattered throughout) - *Routine Cardiovascular Exam Present: RRR - *Routine Abdominal Exam Present: soft, normoactive bowel sounds. Absent: tenderness - *Routine Extremities Exam Present: pulses intact. Absent: edema, calf tenderness - *Routine Neurological Exam Present: alert, oriented X3 Assessment and Plan (1) Respiratory failure Status: Acute Category: Medical Code(s): J96.90 - Respiratory failure, unspecified, unspecified whether with hypoxia or hypercapnia (2) Asthma with exacerbation Status: Acute Category: Medical Code(s): J45.901 - Unspecified asthma with (acute) exacerbation (3) Elevated troponin Status: Acute Category: Medical Code(s): R77.8 - Other specified abnormalities of plasma proteins (4) Elevated troponin Status: Acute Category: Medical Code(s): R77.8 - Other specified abnormalities of plasma proteins - Assessment and plan all Dx Assessment and Plan for all problems:: Cardiology has seen the pt with the following: Assessment and Plan for all problems:: Myocardial injury -In the presence of acute asthma exacerbation, denies chest pain -Trops trending down -Denies chest pain -Recommend outpatient stress testing as needed. Acute respiratory failure/Hx of asthma - Appears to be acute asthma exacerbation however, given patient's hx of estrogen use would consider PE r/o. Will get echo to evaluate for right heart strain. - Will get lower extre
--- NOTE | 2022-05-28 11:08 | HMH.PULMCON ---
*Admission Date: 05/27/22 *Reason for consult:: Acute hypoxic respiratory failure, asthma exacerbation *History of present illness: Patient's prefers to identify as she/her Ms. He is a 56-year-old with a prior history of asthma presented to the ER complaining of worsening respiratory distress low-grade fever leukocytosis respiratory acidosis. [facility] History Medical History: Reports:: Asthma Denies:: Diabetes Mellitus Type 1, Diabetes Mellitus Type 2 *Have you ever received a pneumonia vaccine?: Yes *Have you received a flu vaccine this season?: Yes - *Social History Smoking Status: Never smoker Alcohol Intake: never *Occupational Status:: disabled Housing: house Household Members: family *Travel in the last 8 weeks: None Family Hx:: Heart Attack ROS - Cons Reports fatigue, Denies fever(s) - Eyes Denies change in vision - ENT Denies difficulty swallowing - Card Reports shortness of breath, Reports shortness of breath with activity - Resp Respiratory: Reports cough, Denies excessive phlegm production, Reports cough with sputum production, Reports wheezing - GI Gastrointestingal: Denies: abdominal pain - [place] Musculoskeletal: Denies muscle weakness - Psych Denies thoughts of hurting/killing others, Denies thoughts of hurting/killing yourself Meds Home Medications Medication Instructions Recorded Confirmed Type Albuterol Sulfate [Albuterol 2 puff IH Q4HP PRN 05/27/22 05/27/22 History Sulfate Hfa] Estrogens, Conjugated [Premarin] 2.5 mg PO DAILY 05/27/22 05/27/22 History Medroxyprogesterone Acetate 10 mg PO DIRECTED 05/27/22 05/27/22 History Mometasone/Formoterol [Dulera 200 2 puff IH BID 05/27/22 05/27/22 History Mcg/5 Mcg Inhaler] atenoloL [Atenolol 50mg Tab] 100 mg PO DAILY 05/27/22 05/27/22 History diphenhydrAMINE HCL [Benadryl] 50 mg PO Q4HP PRN 05/27/22 05/27/22 History Allergies Allergy/AdvReac Type Severity Reaction Status Date / Time aspirin Allergy Unknown Unknown Verified 05/27/22 10:28 allergy reaction ibuprofen Allergy Unknown Unknown Verified 05/27/22 10:28 allergy reaction montelukast [From Singulair] Allergy Unknown Unknown Verified 05/27/22 10:28 allergy reaction NSAIDS (Non-Steroidal Allergy Unknown Unknown Verified 05/27/22 10:28 Anti-Inflamma allergy reaction Fish Containing Products Allergy Verified 05/27/22 17:24 TRENALIN Allergy Unknown Unknown Uncoded 05/27/22 10:28 allergy reaction Exam - Constitutional Constitutional:: Present: no acute distress - HENMT Exam HENMT: Present: normocephalic - Eye Exam Eyes:: Present: normal appearance both eyes and related structures - Neck Exam Neck:: Present: normal visual inspection - Respiratory Exam Respiratory:: Present: able to speak in complete sentences, no respiratory distress, wheezing - Cardiovascular Exam Cardiac:: Present: S1, S2 - GI Exam GI:: Present: soft - Skin Exam Skin: Present: warm - Neurological Exam Neurological: Present: alert - Extremities Exam Extremities: Present: no cyanosis, no clubbing - Psychiatric Exam Psychiatric: Present: normal affect, appearance grossly normal Internal Medicine - CN: Reslt - Labs CBC & Chem 7: 05/28/22 06:12 05/28/22 06:12 Labs: Short CBC 05/28/22 Range/Units 06:12 WBC 15.1 H (4.8-10.8) K/mm3 Hgb 13.9 (12.2-16.2) g/dL Hct 42.4 (37.0-47.0) % Plt Count 327 (142-424) K/mm3 [facility] 05/28/22 06:12 Sodium 137 Potassium 4.0 Chloride 103 Carbon Dioxide 28 BUN 10 D Creatinine 0.70 D Glucose 150 H D Calcium 9.0 Cardiac Enzymes 05/27/22 05/28/22 Range/Units 11:45 06:12 Troponin I 0.12 H 0.08 H (0.00-0.034) ng/ml Liver Function 05/28/22 Range/Units 06:12 Total Bilirubin < 0.1 L (0.2-1.3) mg/dl AST 39 H (14-36) U/L ALT 34 (12-78) U/L Alkaline Phosphatase 63 (38-126) U/L Albumin 3.7 (3.5-5.0) g/dl - ABG I
--- NOTE | 2022-05-28 12:57 | PC.NURSE ---
received report on pt. pt in bed resting at this time.
--- NOTE | 2022-05-28 15:33 | PC.NURSE ---
pt has onhal
--- NOTE | 2022-05-28 15:33 | PC.NURSE ---
pt has inhaler from home at bedside, pt reports she has not used it today and does know to let nurse know if she uses it.
--- NOTE | 2022-05-28 17:00 | PC.NURSE ---
pt took 2 puffs of home inhaler
--- NOTE | 2022-05-28 17:49 | PC.NURSE ---
pt has done well majority of shift. pt had an episode of tachypnic and stated she felt like she was about to have an asthma attack, RT gave breathing tx dr. Kinney was notified. iv in L hand patent SL. iv in R HAND DC. personal inhaler at bedside, used once during tachypnic episode. pt up as marissa, alert X4, O2 @ 3L NC. pt is now resting in bed with no complaints at this time.
[2022-05-29] VITALS (22 sets, daily range): BP systolic 126–160; BP diastolic 71–88; PULSE 95–133; RESP 6–22; TEMP 36.4–37.1; O2SAT 88–97; BMI 35.1
--- NOTE | 2022-05-29 04:52 | PC.NURSE ---
Pt is alert and oriented, pt has been restless throughout the night. Pt is tolerating 3L NC with O2 sat >90%. Pt has complained of nausea this shift, treated prn per jan. Pt has received prn tanner treatments, see mar. Lung sounds bilaterally inspiratory/expiratory wheezing, pt states she feels really tight. Pt has ambulated to the bathroom independently.
--- NOTE | 2022-05-29 06:58 | XR_ITS ---
FINAL REPORT CLINICAL HISTORY: acute SOB COMPARISON: 05/28/2022 FINDINGS: SINGLE-VIEW CHEST The heart size is normal. The mediastinum is normal. There are mild worsening opacities in the right lung base consistent with pneumonia or atelectasis. There is no pneumothorax. IMPRESSION: Right lung base pneumonia versus atelectasis. Reviewed, Interpreted and Dictated by Baljinder Carrizales III, MD Transcribed by Sommer Meadows Authenticated and [facility]
--- NOTE | 2022-05-29 07:00 | PC.NURSE ---
Patient complaining of SOB and airway tightness. Patient given duo neb less then 30 min ago by RT. RT contacted prn albuterol tx given. Patient still stating he can not breath pageанна Kinney. New orders of ativan 0.5mg IV now, retimed 125mg solu medrol too now, stat chest xray.
[2022-05-29 07:34] LABS: ABG Base Excess -1.3 mmol/L (-2.4-2.3); ABG HCO3 26.6 mmhg (22.0-26.0); ABG Oxygen Saturation 97 % (90-100); ABG PH 7.21 mmol/L (7.35-7.45); ABG PO2 107.9 mmhg (80-100); ABG TCO2 28.7 mmhg (23-27)
[2022-05-29 07:37] LABS: Allen's Test acceptable; Oxygen 5 %
[2022-05-29 07:39] LABS: Source Right Radial
[2022-05-29 07:40] LABS: ABG PCO2 68.6 mmhg (35.0-45.0)
--- NOTE | 2022-05-29 08:28 | HMH.ACPN2 ---
Internal Medicine - PN: Subj *Date: 05/29/22 *Time: 08:28 Interval history: Patient is not doing well this morning. She has been in status asthmaticus. Pulmonology was called and recommended to continue her Xopenex neb for 1 hour. She is also been given steroids and some Ativan. Exam Vital signs and Labs for Last 24 Hours: Temp Pulse Resp BP Pulse Ox 97.8 F 119 H 20 160/88 H 88 L 05/29/22 03:25 05/29/22 06:38 05/29/22 03:25 05/29/22 03:25 05/29/22 06:02 Laboratory Results - last 24 hr 05/29/22 07:32: Specimen Source Right radial, O2 % 5, Ronald Test acceptable I & O for Last 24 hours: Intake & Output 05/26/22 05/27/22 05/28/22 05/29/22 11:59 11:59 11:59 11:59 Intake Total 840 / 840 240 / 240 Output Total 2620 / 2620 Balance -1780 / -1780 240 / 240 Weight 200 lb 216 lb 7 oz 218 lb 11.177 oz Microbiology Reports for the Last 24 Hours: Microbiology 05/27/22 08:10 Blood Blood Culture - Preliminary NO GROWTH AFTER 48 HOURS 05/27/22 08:10 Blood Blood Culture - Preliminary NO GROWTH AFTER 48 HOURS - Constitutional mild distress - *Routine Respiratory Exam Present: decreased breath sounds, wheezes (Throughout) - *Routine Cardiovascular Exam Present: RRR - *Routine Abdominal Exam Present: soft, normoactive bowel sounds. Absent: tenderness - *Routine Extremities Exam Absent: cyanosis, clubbing, edema - *Routine Skin Exam Present: warm. Absent: rash - *Routine Neurological Exam Drowsy from Ativan Assessment and Plan (1) Respiratory failure Status: Acute Category: Medical Code(s): J96.90 - Respiratory failure, unspecified, unspecified whether with hypoxia or hypercapnia (2) Asthma with exacerbation Status: Acute Category: Medical Code(s): J45.901 - Unspecified asthma with (acute) exacerbation (3) Elevated troponin Status: Acute Category: Medical Code(s): R77.8 - Other specified abnormalities of plasma proteins (4) Elevated troponin Status: Acute Category: Medical Code(s): R77.8 - Other specified abnormalities of plasma proteins - Assessment and plan all Dx Assessment and Plan for all problems:: Respiratory therapy is currently in the room with the patient giving continuous neb treatment. The patient has had 1 dose of Solu-Medrol. Pulmonology to follow and will discuss further care with Dr. Luciano.
--- NOTE | 2022-05-29 09:29 | HMH.PULMPN ---
Internal Medicine - PN: Subj *Date: 05/29/22 *Time: 10:56 Interval history: Acute worsening respiratory distress. Uncontrolled symptoms and frequent hypoxic episodes. Exam - Constitutional Constitutional:: Absent: no acute distress, comfortable - HENMT Exam HENMT: Present: normocephalic - Eye Exam Eyes:: Present: normal appearance both eyes and related structures - Neck Exam Neck:: Present: normal visual inspection - Respiratory Exam Respiratory:: Present: respiratory distress, wheezing - Cardiovascular Exam Cardiac:: Present: S1, S2 - GI Exam GI:: Present: soft - Skin Exam Skin: Present: warm, no rash - Neurological Exam Neurological: Present: awake. Absent: normal cognition - Extremities Exam Extremities: Present: no cyanosis, no clubbing, no edema Assessment and Plan (1) Respiratory failure Status: Acute Category: Medical Code(s): J96.90 - Respiratory failure, unspecified, unspecified whether with hypoxia or hypercapnia (2) Asthma with exacerbation Status: Acute Category: Medical Code(s): J45.901 - Unspecified asthma with (acute) exacerbation (3) Elevated troponin Status: Acute Category: Medical Code(s): R77.8 - Other specified abnormalities of plasma proteins (4) Elevated troponin Status: Acute Category: Medical Code(s): R77.8 - Other specified abnormalities of plasma proteins - Assessment and plan all Dx Assessment and Plan for all problems:: #Acute Asthma exacerbation: #Acute on chronic hypoxic respiratory failure: 56-year-old transgender prefers to be called as he or she, history of asthma with most recent exacerbation from February 2022 presented with worsening respiratory With cough and wheezing which appears to be usual asthma exacerbation. Patient on admission noted to be in hypercarbic patient is here respiratory status improved, weaned to room air this morning. Chest continues to show mild expiratory predominantly on the left lower lung simms. Denies any frequent exacerbations prior to February 2022. Never been intubated for asthma exacerbation. 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 Patient CTA from February showed prominent right upper lobe bronchial thickening along with micronodular tree-in-bud opacities concerning for ABPA was made with continued frequent asthma exacerbations. Chest x-ray from this admission did not show any acute airspace disease. Lower extremity Doppler negative for DVT. Interval update: Asthma uncontrolled, frequent respiratory distress events overnight. A Patient is having life-threatening respiratory distress and acute asthma exacerbation. ABG from this morning showed worsening hypercarbic respiratory failure with a pH of 7.20 PCO2 68.6. PO2 now at 107. X-ray showed concerning bilateral lower lobe airspace disease prominent on the right side Patient awake but appears lethargic not appropriately following commands. We will aggressively treat with nebulization therapies noninvasive ventilator therapy and if continue to worsen then will proceed with intubation mechanical ventilatory support. Auscultation bilateral diffuse wheezing. Plan: -ABG in 1 hr -Levalbuterol 1.25 inhalation therapy every one hour. -Ipratropium every 4 hours along with budesonide every 12 scheduled -Methylprednisolone 60 mg every 6 hours -Magnesium sulfate 2g Once -Follow with CT PE -Continue BiPAP therapy now at 12/, with minute ventilation -Change antibiotics to ceftriaxone and azithromycin -F/U Aspergillus IgE and IgG Ab #Total critical care time spent on this patient is 35 minutes managing acute hypoxic respiratory failure needingnon-invasive ventilation. This time spent include reviewing test results including interpreting chest x-rays, labs and arterial blood gas, optimizing the NIV settings,formulating plan of care, discussing the plan of care with the team and the nursing staff.
--- NOTE | 2022-05-29 09:51 | CT_ITS ---
FINAL REPORT CLINICAL HISTORY: decreased respiratory function FINDINGS: Thin section axial CT images of the chest were obtained with contrast. 3D reformatted images were also obtained. This study was performed with techniques to keep radiation doses as low as reasonably achievable (ALARA). Individualized dose reduction techniques using automated exposure control or adjustment of mA and/or kV according to the patient's size were employed. Motion artifact obscures the lower lobe branches. There is no evidence of pulmonary embolism. There is no evidence of thoracic aortic aneurysm or dissection. There is no evidence of mediastinal or hilar mass or adenopathy. There is no evidence of pulmonary mass or nodule. There are bibasilar opacities, favor atelectasis over pneumonia. Limited images of the upper abdomen reveal multiple gallstones. There is a partially imaged probable small cyst in the medial segment of the left hepatic lobe measuring 12 mm IMPRESSION: No evidence of pulmonary embolism. Cholelithiasis. Probable small cyst in the left hepatic lobe. Reviewed, Interpreted and Dictated by Baljinder Carrizales III, MD Transcribed by [facility] Authenticated and [facility]
[2022-05-29 11:09] LABS: ABG Base Excess 0.2 mmol/L (-2.4-2.3); ABG HCO3 25.1 mmhg (22.0-26.0); ABG Oxygen Saturation 97 % (90-100); ABG PCO2 42.1 mmhg (35.0-45.0); ABG PH 7.39 mmol/L (7.35-7.45); ABG PO2 100.2 mmhg (80-100); ABG TCO2 26.4 mmhg (23-27)
[2022-05-29 11:13] LABS: Allen's Test ACCEPTABLE; Oxygen 40 %; Source Left Radial; Vent Rate 14
--- NOTE | 2022-05-29 12:07 | PC.NURSE ---
pt back to floor
--- NOTE | 2022-05-29 17:54 | PC.NURSE ---
Patient on bipap for most of shift. Patoient able to arouse and follow commands when asked but otherwise patient was asleep. New IV obtained, CTA obtained and indicates no pulmonary embolism. VS stable despite being not given PO pills due to patient's work of breathing and oxygen status. Patient able to wake up near end of shift. alert and oriented and no complaints noted.
[2022-05-30] VITALS (20 sets, daily range): BP systolic 132–165; BP diastolic 68–100; PULSE 78–107; RESP 14–20; TEMP 36.4–36.6; O2SAT 89–97; BMI 34.9
--- NOTE | 2022-05-30 03:56 | PC.NURSE ---
PT. HAS C/O DIZZINESS AND FULLNESS IN HEAD WELL NAUSEA; ADMINISTERED ZOFRAN AND BENADYL PER MAR; MILD EFFECTIVENESS REPORTED. INSPIRATORY AND EXPIRATORY WHEEZING T/O CLIFF LUNGS. INTERMITTENT NON PRODUCTIVE COUGH REPORTED. RA 88-89%; BIPAP O2 SAT 94-96%; PT. HAS NOT C/O SOA THUS FAR THIS SHIFT.
--- NOTE | 2022-05-30 08:39 | P.PN_ITS ---
Internal Medicine - PN: Subj *Date: 05/30/22 *Time: 09:50 Interval history: Patient states she was feeling well until she was taken off of the BiPAP this morning. She began having wheezing and increasing shortness of breath just like she did yesterday. She did not think she had a breathing treatment yet this morning, but respiratory has been giving them every 2 hours through the BIPAP. Exam Vital signs and Labs for Last 24 Hours: Temp Pulse Resp BP Pulse Ox 97.8 F 98 H 20 158/95 H 94 L 05/30/22 07:34 05/30/22 08:10 05/30/22 07:34 05/30/22 07:34 05/30/22 08:10 Laboratory Results - last 24 hr 05/29/22 11:10: Specimen Source Left radial, O2 % 40, ABG pH 7.39, ABG pCO2 42.1, ABG pO2 100.2 H, ABG HCO3 25.1, ABG Total CO2 26.4, ABG O2 Saturation 97, ABG Base Excess 0.2, Ronald Test Acceptable, Vent Rate 14, PEEP Bipap 12/6 I & O for Last 24 hours: Intake & Output 05/27/22 05/28/22 05/29/22 05/30/22 11:59 11:59 11:59 11:59 Intake Total 840 / 840 240 / 240 950 / 950 Output Total 2620 / 2620 0 / 0 Balance -1780 / -1780 240 / 240 950 / 950 Weight 200 lb 216 lb 7 oz 218 lb 11.177 oz 217 lb 4 oz Microbiology Reports for the Last 24 Hours: Microbiology 05/27/22 08:10 Blood Blood Culture - Preliminary NO GROWTH AFTER 48 HOURS 05/27/22 08:10 Blood Blood Culture - Preliminary NO GROWTH AFTER 48 HOURS - Constitutional no acute distress - *Routine Respiratory Exam Present: rhonchi, wheezes - *Routine Cardiovascular Exam Present: RRR - *Routine Abdominal Exam Present: soft, normoactive bowel sounds. Absent: tenderness - *Routine Extremities Exam Absent: cyanosis, clubbing, edema - *Routine Skin Exam Present: warm. Absent: rash - *Routine Neurological Exam Present: alert, oriented X3 Assessment and Plan (1) Respiratory failure Status: Acute Category: Medical Code(s): J96.90 - Respiratory failure, unspecified, unspecified whether with hypoxia or hypercapnia (2) Asthma with exacerbation Status: Acute Category: Medical Code(s): J45.901 - Unspecified asthma with (acute) exacerbation (3) Elevated troponin Status: Acute Category: Medical Code(s): R77.8 - Other specified abnormalities of plasma proteins (4) Elevated troponin Status: Acute Category: Medical Code(s): R77.8 - Other specified ab normalities of plasma proteins - Assessment and plan all Dx Assessment and Plan for all problems:: Patient is due a neb this morning. Respiratory has been called to go ahead and give the neb treatment. She is also receiving IV steroids. Pulmonology to follow.
--- NOTE | 2022-05-30 09:34 | HMH.PULMPN ---
Internal Medicine - PN: Subj *Date: 05/30/22 *Time: 10:41 Interval history: No acute respiratory vents overnight. Stable respiratory status. Exam - Constitutional Constitutional:: Present: no acute distress, comfortable - HENMT Exam HENMT: Present: normocephalic - Eye Exam Eyes:: Present: normal appearance both eyes and related structures - Neck Exam Neck:: Present: normal visual inspection - Respiratory Exam Respiratory:: Present: able to speak in complete sentences, respiratory distress, wheezing - Cardiovascular Exam Cardiac:: Present: S1, S2 - GI Exam GI:: Present: soft - Skin Exam Skin: Present: warm, no rash - Neurological Exam Neurological: Present: alert, awake - Extremities Exam Extremities: Present: no cyanosis, no clubbing, no edema Assessment and Plan (1) Respiratory failure Status: Acute Category: Medical Code(s): J96.90 - Respiratory failure, unspecified, unspecified whether with hypoxia or hypercapnia (2) Asthma with exacerbation Status: Acute Category: Medical Code(s): J45.901 - Unspecified asthma with (acute) exacerbation (3) Elevated troponin Status: Acute Category: Medical Code(s): R77.8 - Other specified abnormalities of plasma proteins (4) Elevated troponin Status: Acute Category: Medical Code(s): R77.8 - Other specified abnormalities of plasma proteins - Assessment and plan all Dx Assessment and Plan for all problems:: #Acute Asthma exacerbation: #Acute on chronic hypoxic respiratory failure: 56-year-old transgender prefers to be called as he or she, history of asthma with most recent exacerbation from February 2022 presented with worsening respiratory With cough and wheezing which appears to be usual asthma exacerbation. Patient on admission noted to be in hypercarbic patient is here respiratory status improved, weaned to room air this morning. Chest continues to show mild expiratory predominantly on the left lower lung simms. Denies any frequent exacerbations prior to February 2022. Never been intubated for asthma exacerbation. 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 Patient CTA from February showed prominent right upper lobe bronchial thickening along with micronodular tree-in-bud opacities concerning for ABPA was made with continued frequent asthma exacerbations. Chest x-ray from this admission did not show any acute airspace disease. Lower extremity Doppler negative for DVT. Interval update: ABG improved. Weaned to nasal cannula. Auscultation improved. CTA no evidence of pulmonary embolism. Bilateral lower lobe bronchial thickening and airspace disease no dense consolidation Plan: -Levalbuterol 1.25 and Ipratropium every 4 hours along with budesonide every 12 scheduled -Methylprednisolone 60 mg every 6 hours -Ceftriaxone and azithromycin -F/U Aspergillus IgE and IgG Ab #Thank you for involving pulmonary in this patient care. We will continue to follow.
--- NOTE | 2022-05-30 09:52 | PC.NURSE ---
RESP CARE NOTE: Pt reported that she hadn't had any nebs this AM. As per recorded, patient has received nebs every 2 hours since yesterday. Pt states she forgot that she has had them, and doesn't remember yesterday at all. We went over all events over the last 24 hours, and all testing and treatment she has received in those 24 hours. Will continue to monitor patient closely.
[2022-05-31] VITALS (13 sets, daily range): BP systolic 123–166; BP diastolic 73–100; PULSE 73–90; RESP 16–20; TEMP 36.4–36.9; O2SAT 89–98; BMI 34.9
--- NOTE | 2022-05-31 04:00 | PC.NURSE ---
no changes from previous assessment, pt awake most of night, VSS, lungs with bilateral wheezing, 02 sats remain 97% on 3L pnc, pt complains of sinus drainage and medicated with benadryl for comfort. no other issues or concerns at this time.
--- NOTE | 2022-05-31 08:45 | HMH.ACPN2 ---
Internal Medicine - PN: Subj *Date: 05/31/22 *Time: 08:45 Interval history: Patient states she is feeling better today. She slept throughout the night and has less wheezing. She slept on nasal oxygen and was able to tolerate some breakfast this morning. She denies any pain. Exam Vital signs and Labs for Last 24 Hours: Temp Pulse Resp BP Pulse Ox 97.5 F L 75 20 166/100 H 97 05/31/22 04:00 05/31/22 05:18 05/31/22 04:00 05/31/22 04:00 05/31/22 05:18 Laboratory Results - last 24 hr 05/29/22 07:32: ABG pH 7.21 L*, ABG pCO2 68.6 H, ABG pO2 107.9 H, ABG HCO3 26.6 H, ABG Total CO2 28.7 H, ABG O2 Saturation 97, ABG Base Excess -1.3, ABG Lactate 3.0 H I & O for Last 24 hours: Intake & Output 05/28/22 05/29/22 05/30/22 05/31/22 11:59 11:59 11:59 11:59 Intake Total 840 / 840 240 / 240 950 / 950 300 / 300 Output Total 2620 / 2620 0 / 0 0 / 0 Balance -1780 / -1780 240 / 240 950 / 950 300 / 300 Weight 216 lb 7 oz 218 lb 11.177 oz 217 lb 4 oz 217 lb - Constitutional no acute distress - *Routine Respiratory Exam Present: rhonchi, wheezes - *Routine Cardiovascular Exam Present: RRR - *Routine Abdominal Exam Present: soft, normoactive bowel sounds. Absent: tenderness - *Routine Extremities Exam Absent: cyanosis, clubbing, edema - *Routine Skin Exam Present: warm. Absent: rash - *Routine Neurological Exam Present: alert, oriented X3 Assessment and Plan (1) Respiratory failure Status: Acute Category: Medical Code(s): J96.90 - Respiratory failure, unspecified, unspecified whether with hypoxia or hypercapnia (2) Asthma with exacerbation Status: Acute Category: Medical Code(s): J45.901 - Unspecified asthma with (acute) exacerbation (3) Elevated troponin Status: Acute Category: Medical Code(s): R77.8 - Other specified abnormalities of plasma proteins (4) Elevated troponin Status: Acute Category: Medical Code(s): R77.8 - Other specified abnormalities of plasma proteins - Assessment and plan all Dx Assessment and Plan for all problems:: Patient improving. Pulmonology to follow.
--- NOTE | 2022-05-31 09:26 | HMH.PULMPN ---
Internal Medicine - PN: Subj *Date: 05/31/22 *Time: 11:56 Interval history: No acute respiratory events overnight. Exam - Constitutional Constitutional:: Present: no acute distress - HENMT Exam HENMT: Present: normocephalic, atraumatic - Eye Exam Eyes:: Present: normal appearance both eyes and related structures - Neck Exam Neck:: Present: normal visual inspection - Respiratory Exam Respiratory:: Present: able to speak in complete sentences, no respiratory distress, wheezing - Cardiovascular Exam Cardiac:: Present: S1, S2 - GI Exam GI:: Present: soft - Skin Exam Skin: Present: warm, no rash - Neurological Exam Neurological: Present: alert, awake - Extremities Exam Extremities: Present: no cyanosis, no clubbing, no edema Assessment and Plan (1) Respiratory failure Status: Acute Category: Medical Code(s): J96.90 - Respiratory failure, unspecified, unspecified whether with hypoxia or hypercapnia (2) Asthma with exacerbation Status: Acute Category: Medical Code(s): J45.901 - Unspecified asthma with (acute) exacerbation (3) Elevated troponin Status: Acute Category: Medical Code(s): R77.8 - Other specified abnormalities of plasma proteins (4) Elevated troponin Status: Acute Category: Medical Code(s): R77.8 - Other specified abnormalities of plasma proteins - Assessment and plan all Dx Assessment and Plan for all problems:: #Acute Asthma exacerbation: #Acute on chronic hypoxic respiratory failure: 56-year-old transgender prefers to be called as he or she, history of asthma with most recent exacerbation from February 2022 presented with worsening respiratory With cough and wheezing which appears to be usual asthma exacerbation. Patient on admission noted to be in hypercarbic patient is here respiratory status improved, weaned to room air this morning. Chest continues to show mild expiratory predominantly on the left lower lung simms. Denies any frequent exacerbations prior to February 2022. Never been intubated for asthma exacerbation. 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 Patient CTA from February showed prominent right upper lobe bronchial thickening along with micronodular tree-in-bud opacities concerning for ABPA was made with continued frequent asthma exacerbations. Chest x-ray from this admission did not show any acute airspace disease. Lower extremity Doppler negative for DVT. Patient hospital course was complicated by worsening asthma exacerbation using mag sulfate and BiPAP therapy with ABG showing hypercarbic respiratory failure. Patient has been receiving methylprednisolone along with frequent nebulization therapies that eventually improved her respiratory status. Interval update: No acute respiratory vents overnight. Plan: - -Duo Nebs Q6 hrs scheduled -Prednisone 60mg oral daily x 5 days followed by 40mg x7 days, 20x7 days and discontinue -Ceftriaxone and azithromycin, can be weaned to levofloxacin to complete a total of 5-day course -F/U Aspergillus IgE and IgG Ab, collected still pending #Thank you for involving pulmonary in this patient care. We will follow the patient in pulmonary clinic in 7 to 10 days post discharge
--- NOTE | 2022-05-31 15:14 | CARE MANAGER ---
Current Medications Acetaminophen (Acetaminophen 500mg Tab) 1,000 mg PO Q6HP PRN PRN Reason: Fever or Mild Pain Stop: 06/27/22 00:02 Atenolol (Atenolol 50mg Tablet) 100 mg PO DAILY SHABNAM Stop: 06/27/22 08:59 Last Admin: 05/31/22 09:35 Dose: 100 mg Documented by: Azithromycin (Azithromycin 250mg Tablet) 500 mg PO Q24H SHABNAM Stop: 06/03/22 11:30 Budesonide (Budesonide 0.5mg/2ml Neb) 0.5 mg IH BIDRT [facility] Stop: 06/28/22 17:59 Last Admin: 05/31/22 05:12 Dose: 0.5 mg Documented by: Diphenhydramine HCl (Diphenhydramine 50mg Capsule) 50 mg PO Q6HP PRN PRN Reason: Itching Stop: 06/27/22 00:03 Last Admin: 05/31/22 04:25 Dose: 50 mg Documented by: Enoxaparin Sodium (Enoxaparin 40mg/0.4ml Syringe) 40 mg SQ DAILY [facility] Stop: 06/27/22 08:59 Last Admin: 05/31/22 09:34 Dose: 40 mg Documented by: Famotidine (Famotidine 20mg Tablet) 40 mg PO DAILY [facility] Stop: 06/27/22 08:59 Last Admin: 05/31/22 09:35 Dose: 40 mg Documented by: Ceftriaxone Sodium 1 gm/ (Sodium Chloride) 50 mls @ 100 mls/hr IV 0900 SHABNAM Stop: 06/12/22 08:59 Last Admin: 05/31/22 09:35 Dose: 100 mls/hr Documented by: Ipratropium Kinney (Ipratropium Kinney 0.5 Mg/2.5ml Solution) 0.5 mg IH Q6RT [facility]NAM Stop: 06/30/22 11:59 Last Admin: 05/31/22 13:15 Dose: 0.5 mg Documented by: Levalbuterol HCl (Levalbuterol 1.25mg/3ml Neb) 1.25 mg IH Q2HP PRN PRN Reason: Shortness Of Breath Or Wheezing Stop: 06/29/22 10:39 Levalbuterol HCl (Levalbuterol 1.25mg/3ml Neb) 1.25 mg IH Q6RT SHABNAM Stop: 06/30/22 11:59 Last Admin: 05/31/22 13:15 Dose: 1.25 mg Documented by: Ondansetron HCl (Ondansetron 4mg/2ml Vial) 4 mg IV Q8HP PRN PRN Reason: Nausea Stop: 06/27/22 00:03 Last Admin: 05/31/22 06:10 Dose: 4 mg Documented by: Prednisone (Prednisone 20mg Tab) 60 mg PO DAILY [facility] Stop: 06/06/22 08:59 Fluticasone/Salmeterol (Fluticasone/Salmeterol 500/50mcg Diskus) 1 puff IH BIDRT [facility] Stop: 06/27/22 17:59 Last Admin: 05/31/22 09:40 Dose: 1 puff Documented by: Sodium Chloride (Sodium Chloride 0.9% 10ml Flush Syringe) 10 ml IV NEEDED PRN PRN Reason: Maintain IV Site Stop: 06/26/22 08:07 Last Admin: 05/30/22 04:57 Dose: 10 ml Documented by:
[2022-05-31 16:12] LABS: Strongyloides IgG Antibody Negative (Negative)
--- NOTE | 2022-05-31 16:35 | CARE MANAGER ---
Notified by Dr. Kinney today that patient will be ready for discharge tomorrow 06/01 if he remains stable over night. He will need a nebulizer machine at discharge, patient choice signed for [facility]. Order faxed and machine is scheduled to be delivered here this afternoon.
--- NOTE | 2022-05-31 16:50 | PC.NURSE ---
Patient has rested with eyes closed most of the day. From 0915-11am patient O2 sat range from 89-93 without Oxygen. No s/s of acute respiratory distress noted; her BP elevated at 1200 post administering Methylprednisolone asymptomatic; will continue to monitor.
[2022-06-01] VITALS: BP 163/98; PULSE 78; PULSE 80; RESP 16; TEMP 36.7; O2SAT 95
[2022-06-01 03:51] VITALS: BP 160/90; PULSE 75; RESP 18; TEMP 36.6; O2SAT 90
[2022-06-01 04:00] VITALS: PULSE 80
--- NOTE | 2022-06-01 04:02 | PC.NURSE ---
Pt has rested intermittently throughout shift. Pt has remained on RA thus far in shift with O2 90-95%. Pt had no s/s of respiratory distress or voiced any SOA throughout shift. Lung sounds in left throughout are expiratory wheezing. Pt's b/p has been elevated this shift, Pt has remained non symptomatic, paged project controls scheduler, no new orders received.
[2022-06-01 05:00] VITALS: BMI 35.5
[2022-06-01 06:08] VITALS: PULSE 76; PULSE 78; O2SAT 92
[2022-06-01 07:59] VITALS: BP 158/91; PULSE 79; RESP 18; TEMP 36.4; O2SAT 93
[2022-06-01 08:00] VITALS: PULSE 80; O2SAT 93
--- NOTE | 2022-06-01 09:32 | HMH.ACPN2 ---
Internal Medicine - PN: Subj *Date: 06/01/22 *Time: 09:32 Interval history: No respiratory difficulties overnight. Has remained on room air with sats running 90 to 95% Exam Vital signs and Labs for Last 24 Hours: Temp Pulse Resp BP Pulse Ox 97.6 F 79 18 158/91 H 93 L 06/01/22 07:59 06/01/22 07:59 06/01/22 07:59 06/01/22 07:59 06/01/22 07:59 Laboratory Results - last 24 hr 05/28/22 06:12: Strongyloides IgG Ab Negative I & O for Last 24 hours: Intake & Output 05/29/22 05/30/22 05/31/22 06/01/22 11:59 11:59 11:59 11:59 Intake Total 240 / 240 950 / 950 540 / 540 1510 / 1510 Output Total 0 / 0 0 / 0 Balance 240 / 240 950 / 950 540 / 540 1510 / 1510 Weight 218 lb 11.177 oz 217 lb 4 oz 217 lb 221 lb 4.8 oz Microbiology Reports for the Last 24 Hours: Microbiology 05/27/22 08:10 Blood Blood Culture - Final NO GROWTH AFTER 5 DAYS 05/27/22 08:10 Blood Blood Culture - Final NO GROWTH AFTER 5 DAYS Narrative: Appears in no distress. Color is normal. Lungs are clear with no rales or wheezes. Heart is regular. Assessment and Plan (1) Respiratory failure Status: Acute Category: Medical Code(s): J96.90 - Respiratory failure, unspecified, unspecified whether with hypoxia or hypercapnia (2) Asthma with exacerbation Status: Acute Category: Medical Code(s): J45.901 - Unspecified asthma with (acute) exacerbation (3) Elevated troponin Status: Acute Category: Medical Code(s): R77.8 - Other specified abnormalities of plasma proteins (4) Elevated troponin Status: Acute Category: Medical Code(s): R77.8 - Other specified abnormalities of plasma proteins - Assessment and plan all Dx Assessment and Plan for all problems:: Respiratory status has improved steadily. Stable for discharge on tapering steroids, every 6 hours DuoNeb treatments, and 5 more days of p.o. Levaquin as per Dr. Kinney's recommendations. Follow-up with Dr. Kinney and PCP in 10 days
--- NOTE | 2022-06-02 23:37 | HMH.DCSUM ---
General - General Admission date:: 05/27/22 <Ji Guan - 06/06/22 22:39> 05/27/22 <EzraAngy - 06/02/22 23:48> Discharge date: 06/01/22 <EzraAngy - 06/02/22 23:48> HPI HPI: Sonam Isidro He is a 56-year-old with a history of asthma who presented to the emergency room extremely short of breath. She states her breathing difficulties began about a week ago with increased air pollen. Usually using her inhaler adequately treats the exacerbation. Patient denies having chest pain. She has occasional palpitations with the use of her albuterol. Patient was brought in by EMS and symptoms were described as being severe. They used CPAP in route with only minimal improvement.Duo nebs were also administered prior to ED arrival. She appeared in severe distress upon arrival to the ER. She could only speak in one-word responses. She was gradually weaned to oxygen at 3 L/min. She was found to have a fever At 99.4. Laboratory results showed a white blood cell count of 12,900. ABGs revealed a pH of 7.2 PCO2 of 66.2 PO2 of 93.4 and bicarb of 25.4. Electrolytes and renal function were normal. Chest x-ray showed no acute process. She was admitted with respiratory failure. At the time of this exam patient does exhibit some dyspnea with conversation. She denies chest pain. She feels that she is breathing better. <EzraAngy - 06/02/22 23:48> Hospital Course Hospital Course: The patient was admitted and started on oxygen and neb treatments. Pulmonology was consulted. She had a chest x-ray showing nothing acute and an echo which showed an EF of 55% with grade 1 diastolic dysfunction. She was seen by pulmonology who reviewed her CT from February 2022 and noted it to have predominant right upper lobe bronchial thickening along with tree-in-bud opacity/micronodular pattern, which could well be from ABPA. She was continued on her inhalers and nebs. She was also seen by cardiology and her troponins were trending down. They recommended outpatient stress testing. They felt her respiratory failure was likely due to an acute asthma exacerbation, however given her history of estrogen use they wanted to rule out a PE. They also ordered lower extremity Dopplers. These were negative. A repeat chest x-ray showed right lung base pneumonia versus atelectasis. She began having more respiratory distress and was in status asthmaticus. Pulmonology was called and recommended continuous neb for 1 hour along with steroids and Ativan. A CTA was ordered and she was placed on BiPAP. Her antibiotics were changed to Rocephin and Zithromax. The CTA showed no evidence of PE, cholelithiasis, and a probable small cyst in the left hepatic lobe. The patient was able to be weaned off of BiPAP. She was continued on nebs every 2 hours. She was continued on IV steroids. Her steroids were weaned. Her breathing began improving and it was felt she could be weaned to oral prednisone as well as Levaquin and duo nebs upon discharge. By 06/01/2022, she had been on room air with sats ranging from 90 to 95%. It was felt she was stable for discharge and will follow-up with pulmonology. <Angy Munguia - 06/02/22 23:48> Objective Vital signs: Temp Pulse Resp BP Pulse Ox 97.6 F 80 18 158/91 H 93 L 06/01/22 07:59 06/01/22 08:00 06/01/22 07:59 06/01/22 07:59 06/01/22 08:00 <Ji Guan - 06/06/22 22:39> Temp Pulse Resp BP Pulse Ox 97.6 F 80 18 158/91 H 93 L 06/01/22 07:59 06/01/22 08:00 06/01/22 07:59 06/01/22 07:59 06/01/22 08:00 <Angy Munguia - 06/02/22 23:48> Narrative: - Constitutional no acute distress - *Routine HEENT Exam Head: Present: normocephalic, atraumatic Eye: Present: PERRL. Absent: scleral injection, conjunctivae pink ENT: Present: mucous membranes moist - *Routine Neck Exam Present: supple. Absent: carotid bruit, lymphadenopathy, thyromegaly - *Routine Respiratory Exam P
--- NOTE | 2022-06-04 14:17 | CARE MANAGER ---
Called and spoke with Rosa regarding post discharge status. Patient states that she was able to oyster picker all medications and is feeling well. Patient has not had time to schedule f/u appointments, so I advised her to go ahead and call so that she can be seen by first of next week. She wanted [facility] to know that the staff here was very polite and she was very happy with her stay here. No known needs at this time.
[2022-06-05 05:13] LABS: M003-IgE Aspergillus fumigatus <0.10 kU/L (Class 0)
[2022-06-14 22:24] LABS: Aspergillus fumigatus IgG 22.6
== END 2022-06-01 11:43 | disposition home or self-care (01) | DRG 189 ==
LOC: ER 09:52 → 2ND 09:59
PROVIDERS: Family Medicine; Internal Medicine Pulmonary Disease; Admitting Provider Family Medicine; Emergency Provider Emergency Medicine; PCP Family Medicine; Visit Provider Family Medicine
DX: J96.21 Acute and chronic respiratory failure with hypoxia (principal); J45.901 Unspecified asthma with (acute) exacerbation; I5A Non-ischemic myocardial injury (non-traumatic); R77.8 Other specified abnormalities of plasma proteins
CPT/HCPCS: 71045; 71046; 71275; 80053; 81001; 82803; 83605; 83880; 84484; 85007; 85025; 86003; 86606; 86682; 87040; 93005; 93306; 93970; 94640; 94660; 94760; 94761; 99291; C9803; J0456; J0696; J2405; J3475; Q9967; U0003; U0005

== ENCOUNTER → 2022-07-05 14:29 | Outpatient (CLI) | payer OTHER, SELFPAY ==
[2022-07-05 15:16] LABS: Basophils # 0.1 K/mm3 (0-0.2); Basophils % 0.6 % (0.1-2.0); Eosinophils # 0.3 K/mm3 (0.0-0.4); Eosinophils % 3.5 % (0.1-12.0); Hematocrit 42.8 % (37.0-47.0); Hemoglobin 14.4 g/dL (12.2-16.2); Lymphocytes # 2.2 K/mm3 (0.7-4.5); Lymphocytes % 29.5 % (10-50); Mean Corpuscular HGB Conc 33.7 g/dL (31.8-35.4); Mean Corpuscular Hemoglobin 30.1 pg (27.0-31.2); Mean Corpuscular Volume 89.4 fl (81-99); Mean Platelet Volume 6.8 fl (7.4-10.4); Monocytes # 0.5 K/mm3 (0.1-1.0); Neutrophils # 4.5 K/mm3 (1.8-7.8); Neutrophils % 60.5 % (37.0-80.0); Platelet Count 421 K/mm3 (142-424); Red Blood Count 4.79 M/mm3 (4.20-5.40); Red Cell Distribution Width 11.9 % (11.5-17.5); White Blood Count 7.5 K/mm3 (4.8-10.8)
[2022-07-12 00:07] LABS: D001-IgE D pteronyssinus <0.10 kU/L (Class 0); D002-IgE D farinae <0.10 kU/L (Class 0); E001-IgE Cat Dander <0.10 kU/L (Class 0); E005-IgE Dog Dander <0.10 kU/L (Class 0); E072-IgE Mouse Urine <0.10 kU/L (Class 0); G002-IgE Bermuda Grass <0.10 kU/L (Class 0); G006-IgE Timothy Grass <0.10 kU/L (Class 0); I006-IgE Cockroach, German <0.10 kU/L (Class 0); Immunoglobulin E, Total 77 IU/mL (6-495); M001-IgE Penicillium chrysogen <0.10 kU/L (Class 0); M002-IgE Cladosporium herbarum <0.10 kU/L (Class 0); M003-IgE Aspergillus fumigatus <0.10 kU/L (Class 0); M006-IgE Alternaria alternata 0.11 kU/L (Class 0/I); T001-IgE Maple/Box Elder <0.10 kU/L (Class 0); T003-IgE Common Silver Birch <0.10 kU/L (Class 0); T006-IgE Cedar, Mountain <0.10 kU/L (Class 0); T007-IgE Oak, White <0.10 kU/L (Class 0); T008-IgE Elm, American <0.10 kU/L (Class 0); T010-IgE Walnut <0.10 kU/L (Class 0); T011-IgE Maple Leaf Sycamore <0.10 kU/L (Class 0); T014-IgE Cottonwood <0.10 kU/L (Class 0); T015-IgE Ash, White <0.10 kU/L (Class 0); T022-IgE Pecan, Hickory <0.10 kU/L (Class 0); T070-IgE White Mulberry <0.10 kU/L (Class 0); W001-IgE Ragweed, Short <0.10 kU/L (Class 0); W011-IgE Thistle, Russian <0.10 kU/L (Class 0); W014-IgE Pigweed, Common <0.10 kU/L (Class 0); W018-IgE Sheep Sorrel <0.10 kU/L (Class 0)
== END ==
PROVIDERS: PCP Family Medicine; Visit Provider Internal Medicine Pulmonary Disease
DX: Z01.812 Encounter for preprocedural laboratory examination (principal); Z20.822 Contact with and (suspected) exposure to COVID-19; J45.909 Unspecified asthma, uncomplicated
CPT/HCPCS: 36415; 82785; 85025; 86003; C9803; U0003; U0005

== ENCOUNTER 2022-07-08 10:53 | Day surgery (SDC) | payer OTHER, SELFPAY ==
[2022-07-04 12:44] VITALS: BMI 38.7
--- NOTE | 2022-07-09 08:19 | SUR.PREOP ---
Pt. case cancelled per Dr. Kinney due to pt eating at 630 am the morning of the procedure. Case to be rescheduled by Dr. Kinney's office.
== END 2022-07-08 12:00 | disposition home or self-care (01) ==
LOC: OR 10:54
PROVIDERS: PCP Family Medicine; Visit Provider Internal Medicine Pulmonary Disease
DX: Z53.09 Procedure and treatment not carried out because of other contraindication (principal)

== ENCOUNTER → 2022-07-17 07:39 | Outpatient (CLI) | payer OTHER, SELFPAY ==
[2022-07-17 09:20] VITALS: PULSE 91; PULSE 97
== END ==
PROVIDERS: PCP Family Medicine; Visit Provider Internal Medicine Pulmonary Disease
DX: R06.02 Shortness of breath (principal)
CPT/HCPCS: 94060; 94618; 94640; 94727; 94729

== ENCOUNTER → 2022-07-26 14:48 | Outpatient (CLI) | payer OTHER, SELFPAY | PROVIDERS: PCP Family Medicine; Visit Provider Internal Medicine Pulmonary Disease | DX: Z01.812 Encounter for preprocedural laboratory examination (principal); Z20.822 Contact with and (suspected) exposure to COVID-19; J45.909 Unspecified asthma, uncomplicated; J44.9 Chronic obstructive pulmonary disease, unspecified | CPT/HCPCS: C9803; U0003; U0005 ==

== ENCOUNTER 2022-07-29 09:16 | Day surgery (SDC) | payer OTHER, SELFPAY ==
[2022-07-26 11:04] VITALS: BMI 34.1
[2022-07-29] VITALS (22 sets, daily range): BP systolic 100–172; BP diastolic 54–100; PULSE 74–122; RESP 16–24; TEMP 36.1–36.8; O2SAT 90–100
--- NOTE | 2022-07-29 11:05 | FL_ITS ---
FINAL REPORT TECHNIQUE: Fluoroscopy was provided for bronchoscopy. CLINICAL HISTORY: 1.21 fluoro time OR case bronch FINDINGS: Fluoroscopy Time: 1.21 Images Submitted: 1 IMPRESSION: Please see physicians report. Reviewed, Interpreted and Dictated by Sanchez Carlton MD Transcribed by Leigh Elliott Authenticated and [facility]
--- NOTE | 2022-07-29 11:19 | P.PNANES_ITS ---
[facility] Anesthesia Record Part I Anesthesia Record I Intake, IV Amount: 800 Estimated blood loss (mL): 0 Urine output (mL): 0 Blood Products used (#): none Blood Pressure: 100/62 SaO2: 90 Pulse Rate: 105 Respiratory Rate: 16 Temperature: 97 F Patient is:: Drowsy and Stable Stable to PACU at:: 11:10
--- NOTE | 2022-07-29 11:19 | EXP.ANES.CKL ---
[facility] Medical History (Updated 07/29/22 @ 10:12 by Donna Garcia RN) Allergies Aspergillosis Asthma Asthma with exacerbation Bronchitis Dyspnea on exertion Eosinophilia HTN (hypertension) Other specified abnormalities of plasma proteins Pneumonia Respiratory failure Respiratory failure, unspecified, unspecified whether with hypoxia or hypercapnia Sinus headache Unspecified asthma with (acute) exacerbation UTI (urinary tract infection) Surgical History (Updated 07/29/22 @ 10:14 by Donna Garcia RN) Hx of removal of cyst Family History Other Asthma Cancer Social History (Updated 07/29/22 @ 10:13 by Donna Garcia RN) Smoking Status: Never smoker second hand exposure: Yes alcohol intake: never substance use type: denies use current occupational status: employed Travel in the last 8 weeks: None household members: family housing: house [facility] Anesthesia Checklist Patient Identification Patient Identification: Arm Band Structural Data Admitted From: Home Planned Operative Procedure/s: Bronchoscopy with Transbronchial Bx Consent for Planned Operative Procedure(s) Verified: Yes Verified Documents: Surgical Consent and History and Physical NPO Status Verified Time NPO: 00:00 Additional verifications Anesthesia Reactions: No Hx Blood Transfusions: No Blood Transfusion Reaction: No Airway Assessment C-Spine Mobility Assessed: Yes TMJ Mobility Assessed: Yes Dentition: Poor Dentition Neurological Assessment Level of Consciousness: Awake and Alert Anesthesia Plan Anesthesia Risk discussed: Yes Anesthesia Plan: Verified ASA Class: III Anesthesia Type: General
--- NOTE | 2022-07-29 11:27 | XR_ITS ---
FINAL REPORT CLINICAL HISTORY: post op COMPARISON: May 29, 2022 FINDINGS: The heart size is normal. The mediastinum is normal. There are chronic changes at the lung bases. There is no focal infiltrate or edema. There are no pleural effusions. There is no pneumothorax. There is no osseous abnormality. IMPRESSION: No acute cardiopulmonary process Reviewed, Interpreted and Dictated by Sanchez Carlton MD Transcribed by Baldomero Coelho Authenticated and [facility]
--- NOTE | 2022-07-29 12:09 | EXP.BRONCH.N ---
Procedure: Date: 07/29/22 Patient Date of :: 1965 Procedure Performed:: Bronchoscopy airway examination, alveolar lavage and transbronchial biopsy Indications:: Atypical pneumonia Performing Provider:: Jayant Kinney MD Referring Provider:: Dr:Millicent Sun MD Sedation:: General anesthesia Procedure:: Bronchoscopy airway examination, bronchoalveolar lavage and transbronchial lung biopsy: A clean THERAPEUTIC bronchoscopy was advanced through the ET tube and airways were examined up to subsegmental bronchi. Airways appeared grossly normal, no evidence of mucoid secretions, mucous plugging active bleeding/old blood clots noted. Bronchoalveolar lavage was performed in the RIGHT LOWER LOBE with instillation of 60 cc normal saline with return of 25 cc back. BAL fluid was sent for cell count and differential along with bacterial fungal and AFB stain and cultures. Transbronchial biopsy was performed in the RIGHT LOWER LOBE with a total of 7 biopsies performed, 5 biopsy specimens were sent in formalin for cytopathologic examination. The other 2 biopsy samples, were sent one each in two separate normal saline specimen cups for bacterial fungal and AFB stain cultures. Special request was also made for the pathologist to evaluate for AFB and fungal organisms on the cytopathologic examination. Patient tolerated the procedure with no acute complications. We will follow the patient in pulmonary clinic in 7 to 10 days. Findings:: Please see the procedure note Recommendations:: Please see the procedure note Complications:: No acute immediate complication Estimated blood obtained (mL): 5
--- NOTE | 2022-07-29 12:37 | SUR.OPER ---
1110- chest xray wanted in PACU per dr. bowers verbal orders. Jaspreet,rn in pacu notified of this at this time
--- NOTE | 2022-07-29 15:14 | P.PNANES_ITS ---
[facility] Anesthesia Record Part II Anesthesia Record Part II Discharge Time: 12:19 Destination: Surgical Day Care (OP Surgery) PACU nurse assessment reviewed?: Yes Patient Condition:: Good Anesthesia Complications:: None Swallowing reflex intact?: Yes Cyanosis?: No Blood Pressure: 151/72 Pulse Rate: 116 Temperature: 97.7 F Mental Status: Alert & Oriented Pain level:: 0 Nausea and/or vomitting:: None Intake, IV Amount: 0
== END 2022-07-29 13:31 | disposition home or self-care (01) ==
PROVIDERS: PCP Family Medicine; Visit Provider Internal Medicine Pulmonary Disease
PROC: (CPT 31624; principal; 2022-07-29 11:00)
DX: J18.9 Pneumonia, unspecified organism (principal); J45.40 Moderate persistent asthma, uncomplicated
CPT/HCPCS: 31624; 31628; 71045; 76000; 87070; 87102; 87116; 87186; 87205; 87206; 89051; 94640; 94761; J2405

== ENCOUNTER 2022-09-10 02:23 | Inpatient (IN) | payer OTHER, SELFPAY ==
[2022-09-10] VITALS (21 sets, daily range): BP systolic 120–171; BP diastolic 78–106; PULSE 85–132; RESP 18–28; TEMP 36.4–37.2; O2SAT 82–96; BMI 35.4; BMI 34.7
--- NOTE | 2022-09-10 02:16 | ECG_ITS ---
APPROVED REPORT Exam: Resting ECG HR:137 bpm ECG Measurements Heart Rate 137 AXES ND 134 P 78 QRSd 85 QRS 78 QT 299 T 64 QTc 379 Conclusion SINUS TACHYCARDIA ABNORMAL RHYTHM ECG INTERPRETATION BASED ON A DEFAULT AGE OF 40 YEARS UNCONFIRMED REPORT Electronically signed by : Navin Parra MD 09/10/2022 21:11:31
--- NOTE | 2022-09-10 02:24 | XR_ITS ---
PROCEDURE INFORMATION: Exam: XR Chest Exam date and time: 09/10/2022 2:41 AM Age: 56 years old Clinical indication: Shortness of breath; Additional info: SOA, labored breathing TECHNIQUE: Imaging protocol: Radiologic exam of the chest. Views: 1 view. COMPARISON: CR XR CHEST PORTABLE 07/29/2022 11:31 AM FINDINGS: Lungs: Resolved right basilar infiltrate. Lungs are clear. Pleural spaces: Unremarkable. No pleural effusion. No pneumothorax. Heart/Mediastinum: Unremarkable. No cardiomegaly. Bones/joints: Unremarkable. IMPRESSION: No acute cardiopulmonary abnormality.
[2022-09-10 02:28] LABS: ABG Base Excess -3.5 mmol/L (-2.4-2.3); ABG Oxygen Saturation 100 % (90-100); ABG PH 7.29 mmol/L (7.35-7.45); ABG PO2 358.2 mmhg (80-100); ABG TCO2 24.5 mmhg (23-27); Oxygen 80% %; Vent Rate 16
[2022-09-10 02:29] LABS: Allen's Test Patient Unable; Pressure Support 7; Source Left Radial
[2022-09-10 02:30] LABS: Coronavirus 19, PCR Not Detected (NotDetected); Influenza A, PCR Not Detected (NotDetected); Influenza B, PCR Not Detected (NotDetected)
[2022-09-10 02:37] LABS: Chloride 103 mmol/L (98-107); Sodium 141 mmol/L (136-145)
[2022-09-10 02:38] LABS: Basophils # 0.2 K/mm3 (0-0.2); Basophils % 1.2 % (0.1-2.0); Eosinophils % 8.2 % (0.1-12.0); Hematocrit 46.6 % (37.0-47.0); Hemoglobin 15.1 g/dL (12.2-16.2); Lymphocytes # 3.4 K/mm3 (0.7-4.5); Lymphocytes % 28.5 % (10-50); Mean Corpuscular HGB Conc 32.5 g/dL (31.8-35.4); Mean Corpuscular Hemoglobin 29.7 pg (27.0-31.2); Mean Corpuscular Volume 91.4 fl (81-99); Mean Platelet Volume 7.6 fl (7.4-10.4); Monocytes # 0.7 K/mm3 (0.1-1.0); Monocytes % 6.2 % (1.7-9.3); Neutrophils # 6.6 K/mm3 (1.8-7.8); Platelet Count 442 K/mm3 (142-424); Potassium 4.2 mmoL/L (3.5-5.1); Red Cell Distribution Width 12.8 % (11.5-17.5); White Blood Count 11.9 K/mm3 (4.8-10.8)
[2022-09-10 02:40] LABS: Alanine Aminotransferase 31 U/L (12-78); Albumin Level 4.2 g/dl (3.5-5.0); Albumin/Globulin Ratio 1.5 (1.1-1.8); Alkaline Phosphatase 80 U/L (38-126); Anion Gap 15.2 mEq/L (5-15); Aspartate Amino Transferase 35 U/L (14-36); Bilirubin,Total 0.3 mg/dl (0.2-1.3); Blood Urea Nitrogen 8 mg/dl (7-17); Carbon Dioxide 27 mmol/L (22.0-30.0); Creatinine Clearance Estimated 116 mL/min (50-200); Estimated Glomerular Filt Rate 65 ml/min (>60); GFR (African American) 79 ML/MIN (>60); Globulin 2.8 g/dL (1.3-3.2); Glucose 161 mg/dl (74-100); Magnesium 1.9 mg/dl (1.6-2.3)
--- NOTE | 2022-09-10 02:40 | PC.NURSE ---
Spoke with Just[facility] at [facility] regarding magnesium drip. Dose of 1mg verified.
--- NOTE | 2022-09-10 02:43 | HMH.EDSOB ---
Discharge Plan Disposition Patient Disposition: Admitted As Inpatient Chief Complaint: Shortness of Breath/Dyspnea Prescriptions Prescriptions: No Action albuterol sulfate [Ventolin HFA] 90 mcg/actuation HFA aerosol inhaler 2 inh inhalation Q6H PRN (Reason: shortness of breath or wheezing) 90 Days Qty: 18 3RF ipratropium-albuterol 0.5 mg-3 mg(2.5 mg base)/3 mL solution for nebulization 3 ml inhalation Q6H PRN (Reason: shortness of breath or wheezing) Qty: 90 3RF medroxyprogesterone 10 MG tablet 10 mg PO DIRECTED Label Comments: TAKE 1 TABLET BY MOUTH THREE TIMES A WEEK Rx Instructions: TAKE 1 TABLET BY MOUTH THREE TIMES A WEEK conjugated estrogens 1.25 MG tablet 0.625 mg PO DAILY Label Comments: TAKE 2 TABLETS BY MOUTH ONCE DAILY atenolol 50 MG tablet 100 mg PO DAILY diphenhydramine HCl 25 MG capsule 50 mg PO Q4HP PRN (Reason: na) fluticasone propion-salmeterol [Advair Diskus] 500-50 mcg/dose blister with device 1 inh inhalation BID Referrals Follow up/Referrals: Millicent Ceron MD [Primary Care Provider] - See instructions Clinical Impressions Clinical Impression: Asthma with exacerbation Discharge ED Provider: Guido Collier Resp/SOB HPI General Chief Complaint: Shortness of Breath/Dyspnea Stated Complaint: SOA, labored breathing Time Seen by Provider: 09/10/22 02:43 Mode of Arrival: EMS Source of Information: Patient, EMS and Medical Record Limitations: bipap usage Description of Symptoms (Recalled from ER Triage Doc. by RN): Per ems, at approx 1255 patient began having soa, attempted to give himself a duoneb treatment at home and used his rescue inhaler and called EMS when the treatment wasnt working. EMS stated that patient was sitting at her computer when the symptoms began. History of Present Illness hx of asthma with acute episode despite treatment at home brought by ems MD Complaint: shortness of breath and asthma attack Onset (ago): hour(s) Context: allergen exposure and anxiety Severity: similar to previous episodes Consistency/Duration: constant Known history of: asthma Associated symptoms: denies other symptoms Treatment prior to arrival: oxygen and bronchodilator Related Data Home oxygen amount: none Home Medications Medication Instructions Recorded Confirmed atenolol 50 mg tablet 100 mg PO DAILY Hypertension 05/27/22 09/10/22 conjugated estrogens 1.25 mg tablet 0.625 mg PO DAILY HORMONE 05/27/22 08/05/22 REPLACEMENT diphenhydramine HCl 25 mg capsule 50 mg PO Q4HP PRN na 05/27/22 08/05/22 medroxyprogesterone 10 mg tablet 10 mg PO DIRECTED BLEEDING 05/27/22 09/10/22 fluticasone 500 mcg-salmeterol 50 1 inh inhalation BID Asthma 07/04/22 09/10/22 mcg/dose blistr powdr for inhalation (Advair Diskus) Previous Rx's Medication Instructions Recorded albuterol sulfate 90 mcg/actuation 2 inh inhalation Q6H PRN shortness 07/03/22 aerosol inhaler (Ventolin HFA) of breath or wheezing 90 days #18 grams ipratropium 0.5 mg-albuterol 3 mg 3 ml inhalation Q6H PRN shortness 09/04/22 (2.5 mg base)/3 mL nebulization of breath or wheezing #90 mL soln Allergies Allergy/AdvReac Type Severity Reaction Status Date / Time aspirin Allergy Severe Anaphylaxis Verified 08/05/22 15:54 ibuprofen Allergy Severe Anaphylaxis Verified 08/05/22 15:54 NSAIDS (Non-Steroidal Allergy Severe Anaphylaxis Verified 08/05/22 15:54 Anti-Inflamma montelukast [From Singulair] Allergy Unknown Unknown Verified 08/05/22 15:54 allergy reaction Fish Containing Products Allergy Verified 08/05/22 15:54 TRENALIN Allergy Unknown Unknown Uncoded 08/05/22 15:54 allergy reaction PFSH PFSH Medical History (Updated 09/10/22 @ 03:03 by Guido Collier MD) Allergies Aspergillosis Aspergillosis Asthma Asthma with exacerbation Bronchitis Dyspnea on exertion Eosinophilia HTN (hypertension) Other specified abnormalities of p
--- NOTE | 2022-09-10 02:53 | PC.NURSE ---
Called hospitalist for admission
[2022-09-10 03:00] LABS: Troponin I < 0.01 ng/ml (0.00-0.034)
--- NOTE | 2022-09-10 03:09 | PC.NURSE ---
Respiratory placed on 2LPM NC d/t sats dropping to 86%. It increased up to 88%. RT increased to 4LPM NC
--- NOTE | 2022-09-10 03:12 | PC.NURSE ---
Dr. Collier s/w hospitalist regarding pt and would like to add full respiratory panel.
--- NOTE | 2022-09-10 04:10 | EXP.HP ---
History of Present Illness *Admission Date: 09/10/22 *Reason for visit:: Acute exacerbation asthma *History of present illness: History and physical for admission I saw and examined this patient in the emergency department for admission to MedSurg unit. Upon examination of this patient she appears to be in some mild distress but nontoxic in nature. This is a 56-year-old male patient that identifies as a female. This patient presents to the emergency department via EMS with her mother who advises that she has been having worsening symptoms of shortness of air for the past few hours and had been giving DuoNeb treatments at home as well as a rescue inhaler without success. This patient has a longstanding history of asthma but has not had recent need for intubation. Mother also denies that the patient has not tested positive for COVID in the past. The past medical history of this patient is remarkable for asthma as well as numerous respiratory infections and bacteria as such as Aspergillus, eosinophilia and respiratory failure. This patient is also currently on gender reassignment hormone therapy. After evaluation and testing in the emergency department it was determined that the patient does not have pneumonia but is hypercapnic and experiencing respiratory acidosis. BiPAP was placed on the patient in the emergency department, continuation of BiPAP once arriving onto the MedSurg unit as well as steroid therapy with a goal of titration from the high-level oxygen. We will continue treatment plan with evaluation and monitoring of labs and vital signs. [facility] Medical History (Updated 09/10/22 @ 11:03 by Jayant Kinney MD) Allergies Aspergillosis Aspergillosis Asthma Asthma with exacerbation Bronchitis Dyspnea on exertion Eosinophilia HTN (hypertension) Other specified abnormalities of plasma proteins Pneumonia Respiratory failure Respiratory failure with hypoxia Respiratory failure, unspecified, unspecified whether with hypoxia or hypercapnia Sinus headache Unspecified asthma with (acute) exacerbation UTI (urinary tract infection) Surgical History History of bronchoscopy Hx of removal of cyst Family History Other Asthma Cancer Social History (Updated 09/10/22 @ 05:03 by Maddison Luciano RN) Smoking Status: Unknown if ever smoked second hand exposure: Yes alcohol intake: never substance use type: denies use current occupational status: employed Travel in the last 8 weeks: None household members: family housing: house Review of Systems Review of Systems Review of systems:: unable to obtain Review of systems (narrative): Patient currently utilizing BiPAP and unable to talk but is alert and oriented with nodding of head to confirm questions. Mother in the room and is able to clarify review of system questions. Constitutional Constitutional: Reports system reviewed and no additional complaints, except as documented, Reports as per HPI, Denies frequent falls, Denies headache(s), Reports lethargy and Denies weakness Eyes Eyes: Reports system reviewed and no additional complaints, except as documented, Reports as per HPI and Denies blurry vision ENT Ears, Nose, Mouth, and Throat: Reports system reviewed and no additional complaints, except as documented, Reports as per HPI, Denies dental pain, Denies otalgia, Denies headache(s), Reports nasal congestion and Reports nasal discharge *Cardiovascular Cardiovascular: Reports system reviewed and no additional complaints, except as documented, Reports as per HPI, Denies chest pain, Denies chest pain at rest, Denies chest pain with activity, Reports dyspnea, Reports dyspnea on exertion, Denies leg edema and Denies lightheadedness *Respiratory Respiratory: Reports system reviewed and no additional complaints, except as documented, Reports as per HPI, Reports chest congest
[2022-09-10 04:17] LABS: Adenovirus,PCR Not Detected (NotDetected); Bordetella Pertussis Not Detected (NotDetected); Chlamydophila Pneumoniae, PCR Not Detected (NotDetected); Coronavirus 19, PCR Not Detected (NotDetected); Coronavirus 229E Not Detected (NotDetected); Coronavirus NL63 Not Detected (NotDetected); Coronavirus OC43 Not Detected (NotDetected); Coronovirus HKU1,PCR Not Detected (NotDetected); Human Metapneumovirus Not Detected (NotDetected); Influenza A, PCR Not Detected (NotDetected); Influenza AH1, 2009 Not Detected (NotDetected); Influenza AH1, PCR Not Detected (NotDetected); Influenza AH3,PCR Not Detected (NotDetected); Influenza B, PCR Not Detected (NotDetected); Mycoplasma Pneumoniae, PCR Not Detected (NotDetected); Parainfluenza 1, PCR Not Detected (NotDetected); Parainfluenza 2, PCR Not Detected (NotDetected); Parainfluenza 3, PCR Not Detected (NotDetected); Parainfluenza 4, PCR Not Detected (NotDetected); Respiratory Syncytial Virus Not Detected (NotDetected); Rhinovirus/Enterovirus Not Detected (NotDetected)
--- NOTE | 2022-09-10 04:26 | PC.NURSE ---
PT [id number] TO FLOOR VIA STRETCHER AT THIS TIME
--- NOTE | 2022-09-10 06:06 | PC.NURSE ---
pt admitted this shift. A&OX4. lethargic. O2 sats high 80s to low 90s on 4L NC. expiratory wheezes auscultated t/o lungs. mother at bedside. call pool in reach.
--- NOTE | 2022-09-10 07:34 | HMH.PHAINT1 ---
Pharmacy Intervention Comments: MEDICATION RECONCILIATION COMPLETED ON PATIENT USING EXTERNAL FILL HISTORY FROM PHARMACY. -PAOLA CARTER, JENSD
[2022-09-10 08:19] LABS: Basophils % 0.2 % (0.1-2.0); Eosinophils % 0.4 % (0.1-12.0); Hematocrit 45.1 % (37.0-47.0); Hemoglobin 14.9 g/dL (12.2-16.2); Lymphocytes # 0.6 K/mm3 (0.7-4.5); Mean Corpuscular HGB Conc 33.1 g/dL (31.8-35.4); Mean Corpuscular Hemoglobin 30.4 pg (27.0-31.2); Mean Corpuscular Volume 91.9 fl (81-99); Mean Platelet Volume 7.9 fl (7.4-10.4); Monocytes # 0.1 K/mm3 (0.1-1.0); Neutrophils % 93.4 % (37.0-80.0); Platelet Count 403 K/mm3 (142-424); Red Cell Distribution Width 12.8 % (11.5-17.5); White Blood Count 11.7 K/mm3 (4.8-10.8)
[2022-09-10 08:24] LABS: MANUAL DIFFERENTIAL MANUAL DIFFERENTIAL (MANUAL DIFF)
[2022-09-10 08:27] LABS: Alanine Aminotransferase 49 U/L (12-78); Albumin Level 4.4 g/dl (3.5-5.0); Albumin/Globulin Ratio 1.5 (1.1-1.8); Alkaline Phosphatase 89 U/L (38-126); Anion Gap 19.7 mEq/L (5-15); Aspartate Amino Transferase 46 U/L (14-36); Bilirubin,Total 0.4 mg/dl (0.2-1.3); Blood Urea Nitrogen 11 mg/dl (7-17); Calcium 8.6 mg/dl (8.4-10.2); Carbon Dioxide 21 mmol/L (22.0-30.0); Chloride 103 mmol/L (98-107); Creatinine Clearance Estimated 127 mL/min (50-200); Estimated Glomerular Filt Rate 75 ml/min (>60); GFR (African American) 90 ML/MIN (>60); Globulin 2.9 g/dL (1.3-3.2); Glucose 130 mg/dl (74-100); Phosphorous 3.4 mg/dl (2.5-4.5); Potassium 3.7 mmoL/L (3.5-5.1); Sodium 140 mmol/L (136-145); Total Protein,Serum 7.3 g/dl (6.3-8.2)
[2022-09-10 08:38] LABS: Troponin I < 0.01 ng/ml (0.00-0.034)
--- NOTE | 2022-09-10 09:00 | XR_ITS ---
FINAL REPORT CLINICAL HISTORY: Exacerbation asthma COMPARISON: 8 hours prior FINDINGS: The heart size is normal. The mediastinum is within normal limits. There is no acute cardiopulmonary process. There is no pleural effusion. There is no pneumothorax. The bony thorax is intact. IMPRESSION: No acute cardiopulmonary process. Reviewed, Interpreted and Dictated by Baljinder Carrizales III, MD Transcribed by Baldomero Coelho Authenticated and . [facility]
--- NOTE | 2022-09-10 09:52 | EXP.PULM.CON ---
History of Present Illness History of present illness: He is a 56-year-old history Severe persistent asthma presented to hospital complaining worsening respiratory's along with worsening wheezing for the last 3 days not improved with nebulization therapies. Denies any known sick contacts. Denies any worsening cough with productive phlegm. Admits patient mom also having similar worsening respiratory symptoms for the last 3 to 4 days PFSH PFS Medical History (Updated 09/10/22 @ 11:03 by Jayant Kinney MD) Allergies Aspergillosis Aspergillosis Asthma Asthma with exacerbation Bronchitis Dyspnea on exertion Eosinophilia HTN (hypertension) Other specified abnormalities of plasma proteins Pneumonia Respiratory failure Respiratory failure with hypoxia Respiratory failure, unspecified, unspecified whether with hypoxia or hypercapnia Sinus headache Unspecified asthma with (acute) exacerbation UTI (urinary tract infection) Surgical History History of bronchoscopy Hx of removal of cyst Family History Other Asthma Cancer Social History (Updated 09/10/22 @ 05:03 by Maddison Luciano RN) Smoking Status: Unknown if ever smoked second hand exposure: Yes alcohol intake: never substance use type: denies use current occupational status: employed Travel in the last 8 weeks: None household members: family housing: house Review of Systems Constitutional Constitutional: Reports fatigue, Denies frequent falls, Denies headache(s) and Denies weakness Eyes Eyes: Denies eye discharge, Denies dry eyes, Denies irritation and Denies itchy eyes ENT Ears, Nose, Mouth, and Throat: Denies headache(s), Denies lip swelling and Denies throat swelling *Cardiovascular Cardiovascular: Reports dyspnea, Reports dyspnea on exertion and Reports leg edema *Respiratory Respiratory: Reports chest congestion, Reports cough, Reports dyspnea, Reports dyspnea on exertion, Denies excessive phlegm production and Reports wheezing *Gastrointestinal Gastrointestinal: Denies abdominal pain, Denies belching and Denies cramping *Musculoskeletal Musculoskeletal: Denies abnormal gait *Neurologic Neurologic: Reports system reviewed and no additional complaints, except as documented, Reports as per HPI, Denies abnormal gait, Denies abnormal speech, Denies frequent falls, Denies headache(s) and Denies weakness Psychiatric Psychiatric: Denies homicidal ideation and Denies suicidal ideation Endocrine Endocrine: Reports fatigue and Denies heat intolerance Hematologic/Lymphatic Hematologic/Lymphatic: Denies easy bleeding and Denies lymphadenopathy Allergic/Immunologic Allergic/Immunologic: Denies itchy eyes, Denies lip swelling, Denies throat swelling and Reports wheezing Pulmonology Exam Inpatient Vital signs and Labs for Last 24 Hours: Temp Pulse Resp BP Pulse Ox FiO2 97.8 F 88 20 137/78 89 L 80 09/10/22 08:00 09/10/22 08:05 09/10/22 04:26 09/10/22 08:00 09/10/22 08:05 09/10/22 02:23 Laboratory Results - last 24 hr 09/10/22 02:20: SARS-CoV-2 (PCR) Not detected, Influenza A Untype (PCR) Not detected, Influenza Type B (PCR) Not detected 09/10/22 02:20: WBC 11.9 H, RBC 5.10, Hgb 15.1, Hct 46.6, MCV 91.4, MCH 29.7, MCHC 32.5, RDW 12.8, Plt Count 442 H, MPV 7.6, Neut % (Auto) 56.0, Lymph % (Auto) 28.5, [place] % (Auto) 6.2, Eos % (Auto) 8.2, Baso % (Auto) 1.2, Neut # (Auto) 6.6, Lymph # (Auto) 3.4, [place] # (Auto) 0.7, Eos # (Auto) 1.0 H, Baso # (Auto) 0.2 09/10/22 02:20: Sodium 141, Potassium 4.2, Chloride 103, Carbon Dioxide 27, Anion Gap 15.2 H, BUN 8, Creatinine 0.90, Estimated Creat Clear 116, Estimated GFR 65, Est GFR ( Amer) 79, Glucose 161 H, Calcium 9.0, Total Bilirubin 0.3, AST 35, ALT 31, Alkaline Phosphatase 80, Troponin I < 0.01, Total Protein 7.0, Albumin 4.2, Globulin 2.8, Albumin/Globulin Ratio 1.5 09/10/22 02:20: Lactate
[2022-09-10 10:22] LABS: Lymphocytes % 5 % (10-50); Monocytes % 1 % (2-9); Neutrophils % 94 % (42-76); Total Cells Counted 100
[2022-09-10 10:25] LABS: Platelet Estimate Slight Increase; RBC Morphology Normal
[2022-09-10 11:07] LABS: Troponin I 0.02 ng/ml (0.00-0.034)
--- NOTE | 2022-09-10 17:32 | PC.NURSE ---
pt was able to stand at the bathroom sink and shave her entire face. She was not wearing O2 and denied dyspnea.
--- NOTE | 2022-09-10 23:34 | PC.NURSE ---
pt coughing and short of air with auditory wheezing at this time. RT Monse called for PRN breathing treatment
--- NOTE | 2022-09-10 23:40 | PC.NURSE ---
RT st bedside
--- NOTE | 2022-09-10 23:59 | PC.NURSE ---
notified hospitalist ann at [id number] regarding pts condition. pt still SOA with labored, pursed lip breathing, and use of accessory muscles at this time. Wheezes auscultated in bilat upper lobes. o2 sat 89%. Ann came to bedside to assess this pt. ordered solu-medrol 80mg IVP and cont. duoneb per RT.
[2022-09-11] VITALS (16 sets, daily range): BP systolic 131–162; BP diastolic 67–96; PULSE 68–123; RESP 19–25; TEMP 36.5–37; O2SAT 9–97; BMI 32.1
--- NOTE | 2022-09-11 00:24 | PC.NURSE ---
pt appears and states she is less SOA. wheezing less audible. O2 sat 89% at this time.
--- NOTE | 2022-09-11 04:08 | PC.NURSE ---
pt on venti mask 9L 35%. O2 sats >90%. Wheezing noted in BUL. No acute distress noted at this time.
[2022-09-11 07:41] LABS: Basophils % 0.2 % (0.1-2.0); Eosinophils # 0.1 K/mm3 (0.0-0.4); Eosinophils % 0.7 % (0.1-12.0); Hematocrit 48.6 % (37.0-47.0); Hemoglobin 15.8 g/dL (12.2-16.2); Lymphocytes # 1.1 K/mm3 (0.7-4.5); Lymphocytes % 6.1 % (10-50); Mean Corpuscular HGB Conc 32.5 g/dL (31.8-35.4); Mean Corpuscular Hemoglobin 29.8 pg (27.0-31.2); Mean Corpuscular Volume 91.8 fl (81-99); Mean Platelet Volume 8.1 fl (7.4-10.4); Monocytes # 0.4 K/mm3 (0.1-1.0); Monocytes % 2.3 % (1.7-9.3); Neutrophils # 16.9 K/mm3 (1.8-7.8); Neutrophils % 90.7 % (37.0-80.0); Platelet Count 474 K/mm3 (142-424); Red Blood Count 5.29 M/mm3 (4.20-5.40); Red Cell Distribution Width 12.9 % (11.5-17.5); White Blood Count 18.7 K/mm3 (4.8-10.8)
[2022-09-11 07:42] LABS: MANUAL DIFFERENTIAL MANUAL DIFFERENTIAL (MANUAL DIFF)
[2022-09-11 07:59] LABS: Alanine Aminotransferase 42 U/L (12-78); Albumin Level 4.6 g/dl (3.5-5.0); Albumin/Globulin Ratio 1.6 (1.1-1.8); Alkaline Phosphatase 96 U/L (38-126); Anion Gap 17.9 mEq/L (5-15); Aspartate Amino Transferase 60 U/L (14-36); Bilirubin,Total 0.3 mg/dl (0.2-1.3); Blood Urea Nitrogen 18 mg/dl (7-17); Calcium 9.7 mg/dl (8.4-10.2); Carbon Dioxide 26 mmol/L (22.0-30.0); Chloride 101 mmol/L (98-107); Creatinine Clearance Estimated 118 mL/min (50-200); Estimated Glomerular Filt Rate 75 ml/min (>60); GFR (African American) 90 ML/MIN (>60); Globulin 2.9 g/dL (1.3-3.2); Glucose 111 mg/dl (74-100); Magnesium 2.1 mg/dl (1.6-2.3); Potassium 3.9 mmoL/L (3.5-5.1); Sodium 141 mmol/L (136-145); Total Protein,Serum 7.5 g/dl (6.3-8.2)
[2022-09-11 08:03] LABS: Lymphocytes % 4 % (10-50); Monocytes % 1 % (2-9); Neutrophils % 95 % (42-76); Platelet Estimate Slight Increase; RBC Morphology Normal; Total Cells Counted 100
--- NOTE | 2022-09-11 09:54 | EXP.PULM.PN ---
Subjective *Date: 09/11/22 *Time: 10:57 Interval history: Patient admits worsening respiratory's along with worsening wheezing Pulmonology Exam Inpatient Vital signs and Labs for Last 24 Hours: Temp Pulse Resp BP Pulse Ox FiO2 98.0 F 107 H 20 162/96 H 93 L 35 09/11/22 07:29 09/11/22 07:29 09/11/22 07:29 09/11/22 07:29 09/11/22 07:29 09/11/22 05:52 Laboratory Results - last 24 hr 09/10/22 07:45: Total Counted 100, Neutrophils % (Manual) 94 H, Lymphocytes % (Manual) 5 L, Monocytes % (Manual) 1 L, Platelet Estimate Slight increase, RBC Morphology Normal 09/10/22 10:36: Troponin I 0.02 09/11/22 07:03: WBC 18.7 H D, RBC 5.29, Hgb 15.8, Hct 48.6 H, MCV 91.8, MCH 29.8, MCHC 32.5, RDW 12.9, Plt Count 474 H, MPV 8.1, Neut % (Auto) 90.7 H, Lymph % (Auto) 6.1 L, [place] % (Auto) 2.3, Eos % (Auto) 0.7, Baso % (Auto) 0.2, Neut # (Auto) 16.9 H, Lymph # (Auto) 1.1, [place] # (Auto) 0.4, Eos # (Auto) 0.1, Baso # (Auto) 0.0, Total Counted 100, Neutrophils % (Manual) 95 H, Lymphocytes % (Manual) 4 L, Monocytes % (Manual) 1 L, Platelet Estimate Slight increase, RBC Morphology Normal 09/11/22 07:03: Sodium 141, Potassium 3.9, Chloride 101, Carbon Dioxide 26, Anion Gap 17.9 H, BUN 18 H D, Creatinine 0.80, Estimated Creat Clear 118, Estimated GFR 75, Est GFR ( Amer) 90, Glucose 111 H, Calcium 9.7, Magnesium 2.1, Total Bilirubin 0.3, AST 60 H D, ALT 42, Alkaline Phosphatase 96, Total Protein 7.5, Albumin 4.6, Globulin 2.9, Albumin/Globulin Ratio 1.6 I & O for Labs for Last 24 Hours: Intake & Output 09/08/22 09/09/22 09/10/22 09/11/22 23:59 23:59 23:59 23:59 Intake Total 360 / 360 420 / 420 Output Total 0 / 0 0 / 0 Balance 360 / 360 420 / 420 Weight 220 lb 14.451 oz 204 lb 9.423 oz Constitutional: Present severe distress Head: Present normocephalic and atraumatic ENT: Present normal exam, normal oropharynx and mucous membranes moist Neck: Present normal inspection and full ROM Respiratory: Present respiratory distress, wheezes, diminished air movement and able to speak in complete sentences Cardiac: Present S1/S2, Tachycardia and radial pulses present GI: Present soft and distention; Absent tenderness or guarding Rectal (female): Present deferred (female): Present deferred Skin: Present intact; Absent cyanosis or jaundice Neuro: Present alert, awake and oriented x 3 Extremities: Present normal inspection and edema; Absent clubbing or cyanosis Psychiatric: Present normal affect and cooperative Assessment and Plan *Assessment and plan (1) Asthma with exacerbation: Status: Acute Category: Medical Code(s): J45.901 - Unspecified asthma with (acute) exacerbation (2) Respiratory failure with hypoxia: Status: Acute Category: Medical Code(s): J96.91 - Respiratory failure, unspecified with hypoxia Plan #Acute hypoxic respiratory failure: #Acute severe asthma exacerbation: History of severe persistent asthma on triple inhaler therapy at home. Presents worsening respiratory distress. No known sick contacts. Chest x-ray on admission and from today reviewed, no dense consolidation noted, airspace disease noted. Bilateral lower lobe interstitial changes. Labs on admission mild leukocytosis neutrophilic predominant. Significant peripheral eosinophilia at 1000 on presentation, improved after steroids. Magnesium 1.9 on admission, received one gram in the ER ABG from admission showed mild hypercarbic respiratory failure with a PCO2 49, pH of 7.29. Patient was initiated on DuoNebs every 4 as needed and budesonide every 12 scheduled and methylprednisolone 125 every 6 hours. Interval update: Worsening respiratory status with increasing oxygen requirements. On examination severe respiratory stress with diffuse wheezing. Patient received 4 doses of albuterol with mild improvement. Initiated on NIV to facilitate breathing. Worsening leukocytosis. Plan: -Follow with ABG -Continue NIV 06/23 witg FiO2 40% -D
--- NOTE | 2022-09-11 10:48 | EXP.ACUTE.PN ---
Subjective *Date: 09/11/22 *Time: 10:48 Interval history: Continues to have shortness of breath this morning. Was showing improvement yesterday afternoon but had a rough night overnight necessitating as needed nebs and an additional dose of steroids. Mild respiratory distress this morning. Remains afebrile. No nausea or vomiting. No chest pain or confusion. 14 point review of systems performed, pertinent positives and negatives as per above. Medical Exam Vital signs and Labs for Last 24 Hours: Vital Signs Temp Pulse Pulse Resp BP Pulse Ox FiO2 09/11/22 10:04 122 H 09/11/22 10:04 123 H 09/11/22 10:04 93 L 35 09/11/22 07:29 98.0 F 107 H 20 162/96 H 93 L 09/11/22 05:52 99 H 09/11/22 05:52 103 H 09/11/22 05:52 89 L 35 09/11/22 04:00 98.6 F 97 H 24 140/96 H 93 L 09/11/22 02:53 91 H 09/11/22 02:52 98 H 09/11/22 01:13 110 H 09/11/22 01:13 94 L 35 09/11/22 00:50 106 H 09/10/22 23:57 106 H 09/10/22 23:57 106 H 09/10/22 23:56 95 H 09/10/22 22:10 91 H 09/10/22 23:55 104 H 09/10/22 23:55 104 H 09/10/22 23:38 104 H 28 H 155/98 H 93 L 09/10/22 19:39 97.6 F 91 H 20 120/89 93 L 09/10/22 18:56 91 H 09/10/22 18:55 94 H 09/10/22 15:05 98.0 F 85 18 171/93 H 95 09/10/22 12:32 98 H 09/10/22 12:32 96 H Intake and Output 09/10/22 09/11/22 09/11/22 23:59 07:59 15:59 Intake Total 360 / 420 60 / 420 Output Total 0 / 0 0 / 0 0 / 0 Balance 0 / 360 360 / 420 60 / 420 Intake: Intake, Oral Amount 360 / 420 60 / 420 Output: Output, Urine Amount 0 / 0 0 / 0 0 / 0 Other: Number of Unmeasured Voids 1 1 1 Weight 92.8 kg Patient Weight 09/11/22 23:59 Weight 92.8 kg Laboratory Results - last 24 hr 09/10/22 10:36: Troponin I 0.02 09/11/22 07:03: WBC 18.7 H D, RBC 5.29, Hgb 15.8, Hct 48.6 H, MCV 91.8, MCH 29.8, MCHC 32.5, RDW 12.9, Plt Count 474 H, MPV 8.1, Neut % (Auto) 90.7 H, Lymph % (Auto) 6.1 L, [place] % (Auto) 2.3, Eos % (Auto) 0.7, Baso % (Auto) 0.2, Neut # (Auto) 16.9 H, Lymph # (Auto) 1.1, [place] # (Auto) 0.4, Eos # (Auto) 0.1, Baso # (Auto) 0.0, Total Counted 100, Neutrophils % (Manual) 95 H, Lymphocytes % (Manual) 4 L, Monocytes % (Manual) 1 L, Platelet Estimate Slight increase, RBC Morphology Normal 09/11/22 07:03: Sodium 141, Potassium 3.9, Chloride 101, Carbon Dioxide 26, Anion Gap 17.9 H, BUN 18 H D, Creatinine 0.80, Estimated Creat Clear 118, Estimated GFR 75, Est GFR ( Amer) 90, Glucose 111 H, Calcium 9.7, Magnesium 2.1, Total Bilirubin 0.3, AST 60 H D, ALT 42, Alkaline Phosphatase 96, Total Protein 7.5, Albumin 4.6, Globulin 2.9, Albumin/Globulin Ratio 1.6 I & O for Labs for Last 24 Hours: Intake & Output 09/08/22 09/09/22 09/10/22 09/11/22 23:59 23:59 23:59 23:59 Intake Total 360 / 360 420 / 420 Output Total 0 / 0 0 / 0 Balance 360 / 360 420 / 420 Weight 100.2 kg 92.8 kg Constitutional: Present mild distress, obese and diaphoretic Head: Present atraumatic ENT: Present normal exam and mucous membranes moist Neck: Present normal inspection Respiratory: Present accessory muscle use, prolonged expiratory phase, rhonchi, wheezes and diminished air movement Cardiac: Present S1/S2 and Tachycardia; Absent No Murmur GI: Present soft; Absent distention or tenderness Extremities: Present normal inspection Skin: Present intact; Absent cyanosis, erythema or dry Neuro: Present Grossly Intact, alert, awake and oriented x 3 Assessment and Plan *Assessment and plan (1) Asthma with exacerbation: Status: Acute Category: Medical Code(s): J45.901 - Unspecified asthma with (acute) exacerbation (2) Dyspnea on exertion: Status: Acute Category: Medical Code(s): R06.09 - Other forms of dyspnea (3) Essential (primary) hypertension: Status: Chronic Ca
[2022-09-11 10:50] LABS: ABG Base Excess -1.6 mmol/L (-2.4-2.3); ABG HCO3 23.3 mmhg (22.0-26.0); ABG Oxygen Saturation 99 % (90-100); ABG PCO2 39.1 mmhg (35.0-45.0); ABG PH 7.39 mmol/L (7.35-7.45); ABG PO2 175.1 mmhg (80-100); ABG TCO2 24.5 mmhg (23-27)
[2022-09-11 10:51] LABS: Allen's Test Patient Unable; Oxygen 50% %; Source Left Radial; Vent Rate 20
--- NOTE | 2022-09-11 23:20 | PC.NURSE ---
Pt is A/ox4. She has been sitting on the side of the bed most of shift. She had an episode where of wheezing this morning. She received multiple neb treatments and placed from venti to BIPAP. She tolerated it well for about an hour, and then requested to be placed back on venti. She was on venti most of the time then had a slight coughing spell and was placed back on bipap for about half hour. Then she requested to be placed back on venti. She has ambulated to the bathroom stand by assist. She has tolerated her diet well. She has not complained of pain. She has no concerns or needs at this time.
[2022-09-12] VITALS (12 sets, daily range): BP systolic 130–145; BP diastolic 62–99; PULSE 64–110; RESP 17–22; TEMP 36.5–36.8; O2SAT 90–99; BMI 32.0
--- NOTE | 2022-09-12 04:54 | PC.NURSE ---
pt noted to have increased anxiety which increases her shortness of breath. Respiratory @ bedside to give pt a breathing treatment. saturation is stable. Will continue to monitor pt levels
[2022-09-12 07:26] LABS: Basophils # 0.1 K/mm3 (0-0.2); Basophils % 0.3 % (0.1-2.0); Eosinophils # 0.3 K/mm3 (0.0-0.4); Eosinophils % 1.6 % (0.1-12.0); Hematocrit 48.8 % (37.0-47.0); Hemoglobin 15.9 g/dL (12.2-16.2); Lymphocytes # 1.5 K/mm3 (0.7-4.5); Lymphocytes % 8.5 % (10-50); Mean Corpuscular HGB Conc 32.5 g/dL (31.8-35.4); Mean Corpuscular Hemoglobin 29.9 pg (27.0-31.2); Mean Corpuscular Volume 91.9 fl (81-99); Mean Platelet Volume 8.5 fl (7.4-10.4); Monocytes # 0.7 K/mm3 (0.1-1.0); Monocytes % 3.9 % (1.7-9.3); Neutrophils # 15.3 K/mm3 (1.8-7.8); Neutrophils % 85.8 % (37.0-80.0); Platelet Count 461 K/mm3 (142-424); Red Blood Count 5.31 M/mm3 (4.20-5.40); Red Cell Distribution Width 12.9 % (11.5-17.5); White Blood Count 17.9 K/mm3 (4.8-10.8)
[2022-09-12 07:30] LABS: MANUAL DIFFERENTIAL MANUAL DIFFERENTIAL (MANUAL DIFF)
--- NOTE | 2022-09-12 07:30 | EXP.ACUTE.PN ---
Subjective *Date: 09/12/22 *Time: 14:02 Interval history: Patient did better overnight. Continues to complain of shortness of breath and congestion however states its improving. Did not require intensive intervention overnight. Tolerating wean of oxygen. Denies nausea, chest pain, anxiety, diarrhea. No fevers overnight. Still tight in her chest but moving air better. Reviewed labs this morning including VBG. Oxygenation improving. Medical Exam Vital signs and Labs for Last 24 Hours: Vital Signs Temp Pulse Pulse Resp BP Pulse Ox FiO2 09/12/22 05:15 101 H 09/12/22 05:15 102 H 09/12/22 05:15 91 L 9 09/12/22 04:00 98.1 F 97 H 18 134/74 92 L 09/12/22 00:00 98 F 64 17 130/62 94 L 09/11/22 22:09 92 L 35 09/11/22 20:00 98.1 F 68 19 132/67 94 L 09/11/22 18:45 40 09/11/22 18:04 110 H 09/11/22 18:04 110 H 09/11/22 18:04 93 L 09/11/22 16:00 9 L 09/11/22 15:21 97.7 F 94 H 22 131/82 94 L 09/11/22 13:33 112 H 09/11/22 13:33 119 H 09/11/22 11:20 97.7 F 114 H 22 146/74 H 97 09/11/22 10:04 122 H 09/11/22 10:04 123 H 09/11/22 10:04 93 L 35 Intake and Output 09/11/22 09/11/22 09/12/22 15:59 23:59 07:59 Intake Total 180 / 780 240 / 780 Output Total 0 / 100 100 / 100 100 / 100 Balance 180 / 680 140 / 680 -100 / -100 Intake: Intake, Oral Amount 180 / 780 240 / 780 Output: Output, Urine Amount 0 / 100 100 / 100 100 / 100 Other: Number of Unmeasured Voids 1 1 Weight 92.5 kg Patient Weight 09/12/22 23:59 Weight 92.5 kg Laboratory Results - last 24 hr 09/11/22 07:03: WBC 18.7 H D, RBC 5.29, Hgb 15.8, Hct 48.6 H, MCV 91.8, MCH 29.8, MCHC 32.5, RDW 12.9, Plt Count 474 H, MPV 8.1, Neut % (Auto) 90.7 H, Lymph % (Auto) 6.1 L, [place] % (Auto) 2.3, Eos % (Auto) 0.7, Baso % (Auto) 0.2, Neut # (Auto) 16.9 H, Lymph # (Auto) 1.1, [place] # (Auto) 0.4, Eos # (Auto) 0.1, Baso # (Auto) 0.0, Total Counted 100, Neutrophils % (Manual) 95 H, Lymphocytes % (Manual) 4 L, Monocytes % (Manual) 1 L, Platelet Estimate Slight increase, RBC Morphology Normal 09/11/22 07:03: Sodium 141, Potassium 3.9, Chloride 101, Carbon Dioxide 26, Anion Gap 17.9 H, BUN 18 H D, Creatinine 0.80, Estimated Creat Clear 118, Estimated GFR 75, Est GFR ( Amer) 90, Glucose 111 H, Calcium 9.7, Magnesium 2.1, Total Bilirubin 0.3, AST 60 H D, ALT 42, Alkaline Phosphatase 96, Total Protein 7.5, Albumin 4.6, Globulin 2.9, Albumin/Globulin Ratio 1.6 09/11/22 10:46: Specimen Source Left radial, O2 % 50%, ABG pH 7.39, ABG pCO2 39.1, ABG pO2 175.1 H, ABG HCO3 23.3, ABG Total CO2 24.5, ABG O2 Saturation 99, ABG Base Excess -1.6, Ronald Test Patient unable, Vent Rate 20 09/12/22 06:52: WBC 17.9 H, RBC 5.31, Hgb 15.9, Hct 48.8 H, MCV 91.9, MCH 29.9, MCHC 32.5, RDW 12.9, Plt Count 461 H, MPV 8.5, Neut % (Auto) 85.8 H, Lymph % (Auto) 8.5 L, [place] % (Auto) 3.9, Eos % (Auto) 1.6, Baso % (Auto) 0.3, Neut # (Auto) 15.3 H, Lymph # (Auto) 1.5, [place] # (Auto) 0.7, Eos # (Auto) 0.3, Baso # (Auto) 0.1 I & O for Labs for Last 24 Hours: Intake & Output 09/09/22 09/10/22 09/11/22 09/12/22 23:59 23:59 23:59 23:59 Intake Total 360 / 360 780 / 780 Output Total 0 / 0 100 / 100 100 / 100 Balance 360 / 360 680 / 680 -100 / -100 Weight 100.2 kg 92.8 kg 92.5 kg Microbiology Reports for the Last 24 Hours: Microbiology 09/10/22 02:25 Blood Blood Culture - Preliminary NO GROWTH AFTER 48 HOURS 09/10/22 02:25 Blood Blood Culture - Preliminary NO GROWTH AFTER 48 HOURS Constitutional: Present mild distress, obese and diaphoretic Head: Present atraumatic ENT: Present normal exam and mucous membranes moist Neck: Present normal inspection Respiratory: Present prolonged expiratory phase, rhonchi, wheezes and diminished air movement Cardiac: Present Reg Rate and Rhythm and S1/S2; A
[2022-09-12 07:34] LABS: Alanine Aminotransferase 54 U/L (12-78); Albumin Level 4.5 g/dl (3.5-5.0); Albumin/Globulin Ratio 1.5 (1.1-1.8); Alkaline Phosphatase 93 U/L (38-126); Anion Gap 15.7 mEq/L (5-15); Aspartate Amino Transferase 108 U/L (14-36); Bilirubin,Total 0.4 mg/dl (0.2-1.3); Blood Urea Nitrogen 22 mg/dl (7-17); Calcium 9.9 mg/dl (8.4-10.2); Carbon Dioxide 27 mmol/L (22.0-30.0); Chloride 100 mmol/L (98-107); Creatinine Clearance Estimated 117 mL/min (50-200); Estimated Glomerular Filt Rate 75 ml/min (>60); GFR (African American) 90 ML/MIN (>60); Glucose 105 mg/dl (74-100); Magnesium 2.3 mg/dl (1.6-2.3); Potassium 3.7 mmoL/L (3.5-5.1); Sodium 139 mmol/L (136-145); Total Protein,Serum 7.5 g/dl (6.3-8.2)
[2022-09-12 08:39] LABS: Lymphocytes % 7 % (10-50); Monocytes % 6 % (2-9); Neutrophils % 87 % (42-76); Total Cells Counted 100
[2022-09-12 08:41] LABS: Platelet Estimate Slight Increase; RBC Morphology Normal
--- NOTE | 2022-09-12 09:42 | EXP.PULM.PN ---
Subjective *Date: 09/12/22 *Time: 15:48 Interval history: No acute respiratory events overnight. Patient admits improving respiratory symptoms. Continues remain on nasal cannula. Pulmonology Exam Inpatient Vital signs and Labs for Last 24 Hours: Temp Pulse Resp BP Pulse Ox FiO2 97.8 F 97 H 20 144/90 H 99 9 09/12/22 07:37 09/12/22 07:37 09/12/22 07:37 09/12/22 07:37 09/12/22 07:37 09/12/22 05:15 Laboratory Results - last 24 hr 09/11/22 10:46: Specimen Source Left radial, O2 % 50%, ABG pH 7.39, ABG pCO2 39.1, ABG pO2 175.1 H, ABG HCO3 23.3, ABG Total CO2 24.5, ABG O2 Saturation 99, ABG Base Excess -1.6, Ronald Test Patient unable, Vent Rate 20 09/12/22 06:52: WBC 17.9 H, RBC 5.31, Hgb 15.9, Hct 48.8 H, MCV 91.9, MCH 29.9, MCHC 32.5, RDW 12.9, Plt Count 461 H, MPV 8.5, Neut % (Auto) 85.8 H, Lymph % (Auto) 8.5 L, [place] % (Auto) 3.9, Eos % (Auto) 1.6, Baso % (Auto) 0.3, Neut # (Auto) 15.3 H, Lymph # (Auto) 1.5, [place] # (Auto) 0.7, Eos # (Auto) 0.3, Baso # (Auto) 0.1, Total Counted 100, Neutrophils % (Manual) 87 H, Lymphocytes % (Manual) 7 L, Monocytes % (Manual) 6, Platelet Estimate Slight increase, RBC Morphology Normal 09/12/22 06:52: Sodium 139, Potassium 3.7, Chloride 100, Carbon Dioxide 27, Anion Gap 15.7 H, BUN 22 H, Creatinine 0.80, Estimated Creat Clear 117, Estimated GFR 75, Est GFR ( Amer) 90, Glucose 105 H, Calcium 9.9, Magnesium 2.3, Total Bilirubin 0.4, AST 108 H D, ALT 54 D, Alkaline Phosphatase 93, Total Protein 7.5, Albumin 4.5, Globulin 3.0, Albumin/Globulin Ratio 1.5 I & O for Labs for Last 24 Hours: Intake & Output 09/09/22 09/10/22 09/11/22 09/12/22 23:59 23:59 23:59 23:59 Intake Total 360 / 360 780 / 780 300 / 300 Output Total 0 / 0 100 / 100 100 / 100 Balance 360 / 360 680 / 680 200 / 200 Weight 220 lb 14.451 oz 204 lb 9.423 oz 203 lb 14.841 oz Microbiology Reports for the Last 24 Hours: Microbiology 09/10/22 02:25 Blood Blood Culture - Preliminary NO GROWTH AFTER 48 HOURS 09/10/22 02:25 Blood Blood Culture - Preliminary NO GROWTH AFTER 48 HOURS Constitutional: Present mild distress Head: Present normocephalic and atraumatic ENT: Present normal exam, normal oropharynx and mucous membranes moist Neck: Present normal inspection and full ROM Respiratory: Present wheezes and able to speak in complete sentences; Absent respiratory distress Cardiac: Present S1/S2, Tachycardia and radial pulses present GI: Present soft and distention; Absent tenderness or guarding Rectal (female): Present deferred (female): Present deferred Skin: Present intact; Absent cyanosis or jaundice Neuro: Present alert, awake and oriented x 3 Extremities: Present normal inspection and edema; Absent clubbing or cyanosis Psychiatric: Present normal affect and cooperative Assessment and Plan *Assessment and plan (1) Asthma with exacerbation: Status: Acute Category: Medical Code(s): J45.901 - Unspecified asthma with (acute) exacerbation (2) Respiratory failure with hypoxia: Status: Acute Category: Medical Code(s): J96.91 - Respiratory failure, unspecified with hypoxia Plan #Acute hypoxic respiratory failure: #Acute severe asthma exacerbation: History of severe persistent asthma on triple inhaler therapy at home. Presents worsening respiratory distress. No known sick contacts. Chest x-ray on admission and from today reviewed, no dense consolidation noted, airspace disease noted. Bilateral lower lobe interstitial changes. Labs on admission mild leukocytosis neutrophilic predominant. Significant peripheral eosinophilia at 1000 on presentation, improved after steroids. Magnesium 1.9 on admission, received one gram in the ER ABG from admission showed mild hypercarbic respiratory failure with a PCO2 49, pH of 7.29. Patient was initiated on DuoNebs every 4 as needed and budesonide every 12 scheduled and methylpredniso
--- NOTE | 2022-09-12 15:33 | PC.NURSE ---
Patient weaned to 3LNC with humidification. Patient able to rest but when awoken for vitals felt like she needed a breathing treatment, respiratory notified. Lungs upon ascultation still exhibit expiratory wheezing. VS stable and no complaints of pain noted.
[2022-09-13] VITALS (11 sets, daily range): BP systolic 146–165; BP diastolic 78–98; PULSE 82–99; RESP 18–26; TEMP 36.4–37.3; O2SAT 91–97
--- NOTE | 2022-09-13 05:57 | PC.NURSE ---
PT HAS RESTED WELL THROUGHOUT SHIFT, PT BECOMES SOA WITH EXERTION, VENTI MASK WAS REAPPLIED BY RESPIRATORY BEFORE PT FELL ASLEEP D/T O2 SAT OF 86% PT HAS MAINTAINED SAT ABOVE 89% SINCE VENTI MASK WAS REAPPLIED, NONPRODUCTIVE COUGH CONTINUES WELL WHEEZING NOTED THROUGHOUT ALL LOBES, NO DISTRESS NOTED AT THIS TIME VSS
[2022-09-13 07:14] LABS: Basophils % 0.3 % (0.1-2.0); Eosinophils # 0.2 K/mm3 (0.0-0.4); Eosinophils % 1.5 % (0.1-12.0); Hematocrit 44.5 % (37.0-47.0); Hemoglobin 14.6 g/dL (12.2-16.2); Lymphocytes # 1.7 K/mm3 (0.7-4.5); Lymphocytes % 15.7 % (10-50); Mean Corpuscular HGB Conc 32.9 g/dL (31.8-35.4); Mean Corpuscular Hemoglobin 29.8 pg (27.0-31.2); Mean Corpuscular Volume 90.5 fl (81-99); Mean Platelet Volume 8.5 fl (7.4-10.4); Monocytes # 0.6 K/mm3 (0.1-1.0); Monocytes % 5.7 % (1.7-9.3); Neutrophils # 8.2 K/mm3 (1.8-7.8); Neutrophils % 76.7 % (37.0-80.0); Platelet Count 378 K/mm3 (142-424); Red Blood Count 4.92 M/mm3 (4.20-5.40); White Blood Count 10.6 K/mm3 (4.8-10.8)
[2022-09-13 07:38] LABS: Anion Gap 13.6 mEq/L (5-15); Blood Urea Nitrogen 19 mg/dl (7-17); Calcium 9.2 mg/dl (8.4-10.2); Carbon Dioxide 26 mmol/L (22.0-30.0); Chloride 102 mmol/L (98-107); Creatinine Clearance Estimated 134 mL/min (50-200); Estimated Glomerular Filt Rate 87 ml/min (>60); GFR (African American) 106 ML/MIN (>60); Glucose 125 mg/dl (74-100); Potassium 3.6 mmoL/L (3.5-5.1); Sodium 138 mmol/L (136-145)
--- NOTE | 2022-09-13 09:52 | EXP.PULM.PN ---
Subjective *Date: 09/13/22 *Time: 12:20 Interval history: No acute respiratory events overnight. Admits improving symptoms, still complaining of wheezing and respiratory distress. Pulmonology Exam Inpatient Vital signs and Labs for Last 24 Hours: Temp Pulse Resp BP Pulse Ox FiO2 98.1 F 96 H 20 146/78 H 92 L 35 09/13/22 08:00 09/13/22 08:00 09/13/22 08:00 09/13/22 08:00 09/13/22 08:00 09/13/22 05:15 Laboratory Results - last 24 hr 09/13/22 06:54: WBC 10.6 D, RBC 4.92, Hgb 14.6, Hct 44.5, MCV 90.5, MCH 29.8, MCHC 32.9, RDW 13.0, Plt Count 378, MPV 8.5, Neut % (Auto) 76.7, Lymph % (Auto) 15.7, [place] % (Auto) 5.7, Eos % (Auto) 1.5, Baso % (Auto) 0.3, Neut # (Auto) 8.2 H, Lymph # (Auto) 1.7, [place] # (Auto) 0.6, Eos # (Auto) 0.2, Baso # (Auto) 0.0 09/13/22 06:54: Sodium 138, Potassium 3.6, Chloride 102, Carbon Dioxide 26, Anion Gap 13.6, BUN 19 H, Creatinine 0.70, Estimated Creat Clear 134, Estimated GFR 87, Est GFR ( Amer) 106, Glucose 125 H, Calcium 9.2 I & O for Labs for Last 24 Hours: Intake & Output 09/10/22 09/11/22 09/12/22 09/13/22 23:59 23:59 23:59 23:59 Intake Total 360 / 360 780 / 780 900 / 900 Output Total 0 / 0 100 / 100 100 / 1300 1200 / 1200 Balance 360 / 360 680 / 680 800 / -400 -1200 / -1200 Weight 220 lb 14.451 oz 204 lb 9.423 oz 203 lb 14.841 oz Microbiology Reports for the Last 24 Hours: Microbiology 09/10/22 02:25 Blood Blood Culture - Preliminary NO GROWTH AFTER 48 HOURS 09/10/22 02:25 Blood Blood Culture - Preliminary NO GROWTH AFTER 48 HOURS Constitutional: Present mild distress Head: Present normocephalic and atraumatic ENT: Present normal exam, normal oropharynx and mucous membranes moist Neck: Present normal inspection and full ROM Respiratory: Present wheezes and able to speak in complete sentences; Absent respiratory distress Cardiac: Present S1/S2, Tachycardia and radial pulses present GI: Present soft and distention; Absent tenderness or guarding Rectal (female): Present deferred (female): Present deferred Skin: Present intact; Absent cyanosis or jaundice Neuro: Present alert, awake and oriented x 3 Extremities: Present normal inspection and edema; Absent clubbing or cyanosis Psychiatric: Present normal affect and cooperative Assessment and Plan *Assessment and plan (1) Asthma with exacerbation: Status: Acute Category: Medical Code(s): J45.901 - Unspecified asthma with (acute) exacerbation (2) Respiratory failure with hypoxia: Status: Acute Category: Medical Code(s): J96.91 - Respiratory failure, unspecified with hypoxia Plan #Acute hypoxic respiratory failure: #Acute severe asthma exacerbation: History of severe persistent asthma on triple inhaler therapy at home. Presents worsening respiratory distress. No known sick contacts. Chest x-ray on admission and from today reviewed, no dense consolidation noted, airspace disease noted. Bilateral lower lobe interstitial changes. Labs on admission mild leukocytosis neutrophilic predominant. Significant peripheral eosinophilia at 1000 on presentation, improved after steroids. Magnesium 1.9 on admission, received one gram in the ER ABG from admission showed mild hypercarbic respiratory failure with a PCO2 49, pH of 7.29. Patient was initiated on DuoNebs every 4 as needed and budesonide every 12 scheduled and methylprednisolone 125 every 6 hours. Interval update: No acute respiratory vents overnight. Stable oxygen requirements, needing 2 to 3 L at rest. Need increasing requirements while sleeping concerning for sleep apnea. Will evaluate as an outpatient basis. Single improved wheezing. Primary team evaluating and managing patient's anxiety Plan: -Continue nasal cannula oxygen supplementation to maintain O2 saturation goal of 90% and above. -Dexamethasone to 4 mg oral daily x5 days from discharge -Continue DuoNebs every
--- NOTE | 2022-09-13 16:03 | PC.NURSE ---
Patient oxygenation saturation 86% at rest on room air.
--- NOTE | 2022-09-13 16:17 | CARE MANAGER ---
Patient information sent to [employer] and they will deliver Oxygen equipment. MIKE Lynn
--- NOTE | 2022-09-13 17:25 | EXP.DC.SUM ---
General Admission date:: 09/10/22 Discharge date: 09/13/22 HPI HPI HPI: History and physical for admission I saw and examined this patient in the emergency department for admission to MedSurg unit. Upon examination of this patient she appears to be in some mild distress but nontoxic in nature. This is a 56-year-old male patient that identifies as a female. This patient presents to the emergency department via EMS with her mother who advises that she has been having worsening symptoms of shortness of air for the past few hours and had been giving DuoNeb treatments at home as well as a rescue inhaler without success. This patient has a longstanding history of asthma but has not had recent need for intubation. Mother also denies that the patient has not tested positive for COVID in the past. The past medical history of this patient is remarkable for asthma as well as numerous respiratory infections and bacteria as such as Aspergillus, eosinophilia and respiratory failure. This patient is also currently on gender reassignment hormone therapy. After evaluation and testing in the emergency department it was determined that the patient does not have pneumonia but is hypercapnic and experiencing respiratory acidosis. BiPAP was placed on the patient in the emergency department, continuation of BiPAP once arriving onto the MedSurg unit as well as steroid therapy with a goal of titration from the high-level oxygen. We will continue treatment plan with evaluation and monitoring of labs and vital signs. Hospital Course Hospital Course Hospital Course: 56-year-old transgender male (identifies as female) who presented to the emergency room with severe asthma exacerbation.? Admitted for severe asthma exacerbation. Required prolonged course due to hypoxia, need for IV steroids and frequency of breathing treatments. Gradual improvement but still necessitating oxygen at discharge. Medically stable for discharge home to continue breathing treatments, antibiotics, steroids, O2. Close follow-up with pulmonology. Problems addressed during hospitalization as follows: Asthma with severe exacerbation Acute hypoxemic respiratory failure -Admitted for severe asthma and hypoxemic respiratory failure. Initiated on IV steroids and nebulizers along with supplemental oxygen. Goal saturation greater than 90% during admission. Pulmonology consulted, appreciate their assistance in care of this patient during admission. Initially required BiPAP, gradually weaned to Ventimask and nasal cannula oxygen. Treated with duo nebs and budesonide initially. Transition to dexamethasone for discharge, continue 5 more days of oral 4 mg steroids. Treated with azithromycin during admission, received 3 days of 500 mg IV antibiotics. Also taking Benadryl for allergies. Recommended long-acting Sarah and trialing nasal sprays including Flonase and azelastine. Hypertension present on admission. Continued home atenolol. Needs reevaluation in the outpatient setting when stable medically for consideration for additional therapies. Reports a history of hypokalemia on other meds many years ago complicating therapy for blood pressure Additionally discussed anxiety during admission. Appears to have an anxiety component worsening patient's dyspnea. She was open to trialing Zoloft. Discharged with Zoloft 50 mg, half tablet once a day for 4 days, increase to whole tablet thereafter. Would recommend further discussion with her PCP. Moderate bedside during discussion. Stable for discharge home. Spent 35 minutes in discharge counseling and direct care with patient. Exam Data for Last 24 hours Vital signs and Labs for Last 24 Hours: Temp Pulse Resp BP Pulse Ox FiO2 97.5 F L 82 22 159/98 H 97 35 09/13/22 16:00 09/13/22 16:00 09/13/22 16:00 09/13/22 16:00 09/13/22 16:00 09/13/22 05:15 Laboratory Results - last 24 hr 09/13/22 06:54: WBC 10.6 D, RBC 4.92, Hgb 14.6, H
--- NOTE | 2022-09-16 12:59 | CARE MANAGER ---
Spoke with patient for post-discharge phone interview, patient states that she is good and has no issues at this time.
== END 2022-09-13 18:50 | disposition home or self-care (01) | DRG 189 ==
LOC: ER 03:03 → 2ND 04:03
PROVIDERS: Nurse Practitioner Family; Admitting Provider Family Medicine; Emergency Provider Emergency Medicine; PCP Family Medicine; Visit Provider Internal Medicine Adolescent Medicine
DX: J96.01 Acute respiratory failure with hypoxia (principal); J45.51 Severe persistent asthma with (acute) exacerbation; E87.29 Other acidosis; I10 Essential (primary) hypertension; F41.9 Anxiety disorder, unspecified
CPT/HCPCS: 36415; 71045; 80048; 80053; 82803; 83605; 83735; 84100; 84484; 85007; 85025; 87040; 87581; 87632; 87798; 93005; 94640; 94660; 94761; 99285; C9803; J0456; J3475; U0003; U0005

== ENCOUNTER → 2023-03-21 13:51 | Outpatient (CLI) | payer OTHER, SELFPAY | PROVIDERS: PCP Family Medicine; Visit Provider Internal Medicine Pulmonary Disease | DX: G47.33 Obstructive sleep apnea (adult) (pediatric) (principal); R06.83 Snoring | CPT/HCPCS: 95806 ==

== ENCOUNTER 2023-05-12 20:31 | Emergency (ER) | payer OTHER, SELFPAY ==
[2023-05-12] VITALS (8 sets, daily range): BP systolic 128–165; BP diastolic 81–98; PULSE 113–162; RESP 13–30; TEMP 36.9; O2SAT 93–96; BMI 33.6
--- NOTE | 2023-05-12 20:38 | PC.NURSE ---
RT at BS
--- NOTE | 2023-05-12 20:42 | XR_ITS ---
PROCEDURE INFORMATION: Exam: XR Chest Exam date and time: 05/12/2023 8:44 PM Age: 57 years old Clinical indication: Dyspnea TECHNIQUE: Imaging protocol: Radiologic exam of the chest. Views: 1 view. COMPARISON: CR XR CHEST PORTABLE 09/10/2022 10:37 AM FINDINGS: Lungs: Streaky opacity at the right lung base. Relative lucency within the upper lung zones. No lobar consolidation. Pleural spaces: No pneumothorax. Heart/Mediastinum: No cardiomegaly. Bones/joints: No acute abnormality. IMPRESSION: Streaky opacity at the right lung base which is likely atelectatic however pneumonitis should be clinically excluded.
[2023-05-12 20:47] LABS: ABG Base Excess -3.5 mmol/L (-2.4-2.3); ABG HCO3 21.5 mmhg (22.0-26.0); ABG Oxygen Saturation 98 % (90-100); ABG PCO2 36.3 mmhg (35.0-45.0); ABG PH 7.39 mmol/L (7.35-7.45); ABG PO2 102.8 mmhg (80-100); ABG TCO2 22.6 mmhg (23-27)
[2023-05-12 20:50] LABS: Basophils # 0.1 K/mm3 (0-0.2); Basophils % 0.5 % (0.1-2.0); Eosinophils # 0.1 K/mm3 (0.0-0.4); Eosinophils % 0.5 % (0.1-12.0); Hematocrit 58.2 % (37.0-47.0); Lymphocytes # 2.8 K/mm3 (0.7-4.5); Mean Corpuscular HGB Conc 31.7 g/dL (31.8-35.4); Mean Corpuscular Hemoglobin 27.6 pg (27.0-31.2); Mean Corpuscular Volume 87.1 fl (81-99); Mean Platelet Volume 7.5 fl (7.4-10.4); Monocytes # 0.5 K/mm3 (0.1-1.0); Neutrophils # 9.2 K/mm3 (1.8-7.8); Platelet Count 467 K/mm3 (142-424); Red Blood Count 6.69 M/mm3 (4.20-5.40); Red Cell Distribution Width 12.7 % (11.5-17.5); White Blood Count 12.6 K/mm3 (4.8-10.8)
[2023-05-12 20:50] LABS: Allen's Test Acceptable; Lactate Arterial 2.8 mmol/L (0.4-2.0); Oxygen 21 %; Source Right Radial
[2023-05-12 20:53] LABS: Chloride 99 mmol/L (98-107)
[2023-05-12 20:54] LABS: Potassium 3.9 mmoL/L (3.5-5.1); Sodium 144 mmol/L (136-145)
[2023-05-12 20:56] LABS: Alanine Aminotransferase 40 U/L (12-78); Alkaline Phosphatase 110 U/L (38-126); Aspartate Amino Transferase 45 U/L (14-36); Bilirubin,Total 0.8 mg/dl (0.2-1.3); Blood Urea Nitrogen 7 mg/dl (7-17); Creatinine Clearance Estimated 109 mL/min (50-200); Estimated Glomerular Filt Rate 65 ml/min (>60); GFR (African American) 79 ML/MIN (>60)
[2023-05-12 20:57] LABS: Albumin Level 5.8 g/dl (3.5-5.0); Anion Gap 22.9 mEq/L (5-15); Calcium 10.2 mg/dl (8.4-10.2); Carbon Dioxide 26 mmol/L (22.0-30.0); Glucose 107 mg/dl (74-100); Hemoglobin 18.6 g/dL (12.2-16.2)
--- NOTE | 2023-05-12 21:02 | ECG_ITS ---
APPROVED REPORT Exam: Resting ECG HR:136 bpm ECG Measurements Heart Rate 136 AXES PA 133 P 81 QRSd 85 QRS 90 QT 338 T 79 QTc 418 Conclusion SINUS TACHYCARDIA NONSPECIFIC T-WAVE ABNORMALITY ABNORMAL RHYTHM ECG UNCONFIRMED REPORT Electronically signed by : Navin Parra MD 05/13/2023 20:28:15
[2023-05-12 21:04] LABS: Albumin/Globulin Ratio 1.2 (1.1-1.8); Globulin 4.9 g/dL (1.3-3.2); Total Protein,Serum 10.7 g/dl (6.3-8.2)
--- NOTE | 2023-05-12 21:52 | [facility].EDSOB ---
Discharge Plan Disposition Patient Disposition: Home, Self-Care Prescriptions Prescriptions: New azithromycin [azithromycin] 250 mg tablet 250 mg PO DIRECTED Qty: 6 0RF Rx Instructions: Take two (2) tablets on day #1, then one (1) tablet day #2 thru #5 prednisone [prednisone] 20 mg tablet 20 mg PO BID Qty: 10 0RF No Action hydrochlorothiazide 12.5 mg tablet 12.5 mg PO DAILY Nucala 100 mg/mL auto-injector 100 mg SQ Q4W Qty: 1 3RF fluticasone propionate [Flonase Allergy Relief] 50 mcg/actuation spray,suspension 1 spray intranasal BID 90 Days Qty: 16 2RF Rx Instructions: administer into each nostril fluticasone propion-salmeterol [Advair Diskus] 500-50 mcg/dose blister with device 1 inh inhalation BID Qty: 180 3RF albuterol sulfate [Ventolin HFA] 90 mcg/actuation HFA aerosol inhaler 2 inh inhalation Q6H PRN (Reason: shortness of breath or wheezing) 90 Days Qty: 18 1RF Spiriva Respimat 2.5 mcg/actuation mist 2 inh inhalation DAILY 90 Days Qty: 4 2RF ipratropium-albuterol 0.5 mg-3 mg(2.5 mg base)/3 mL solution for nebulization 3 ml inhalation Q6HP PRN (Reason: shortness of breath or wheezing) 90 Days Qty: 270 2RF medroxyprogesterone 10 MG tablet 10 mg PO MOWEFR Patient Comments: TAKE 1 TABLET BY MOUTH THREE TIMES A WEEK Rx Instructions: TAKE 1 TABLET BY MOUTH THREE TIMES A WEEK atenolol 50 MG tablet 100 mg PO DAILY Referrals Follow up/Referrals: Millicent Ceron MD [Primary Care Provider] - See instructions Clinical Impressions Clinical Impression: Asthma with exacerbation Instructions Patient Instructions: DI for Shortness of Breath Discharge ED Provider: Amira (ED)Guido Resp/SOB HPI General Chief Complaint: Shortness of Breath/Dyspnea Stated Complaint: SOA Time Seen by Provider: 05/12/23 21:00 Mode of Arrival: EMS Source of Information: Patient, EMS and Medical Record Limitations: No Limitations Description of Symptoms (Recalled from ER Triage Doc. by RN): 57 F presents from home via EMS for severe acute asthma exacerbation. This began approximately 1900. EMS has given 125mg SoluMedrol IVP, and 2 Duonebs with minimal effect. Patient remains tachycardic, tachypenic, with audible wheezes, chest wall retractions. 18g LAC per EMS. remains on room air >92% History of Present Illness acute episode of asthma with hx of same - MD Complaint: asthma attack Onset (ago): hour(s) Severity: moderate Consistency/Duration: intermittent Relieving factors: bronchodilators Known history of: asthma Associated symptoms: denies other symptoms Treatment prior to arrival: oxygen and bronchodilator Related Data Home oxygen amount: none Home Medications Medication Instructions Recorded Confirmed atenolol 50 mg tablet 100 mg PO DAILY Hypertension 05/27/22 04/24/23 medroxyprogesterone 10 mg tablet 10 mg PO MOWEFR HORMONE THERAPY 05/27/22 04/24/23 hydrochlorothiazide 12.5 mg tablet 12.5 mg PO DAILY 01/14/23 04/24/23 Previous Rx's Medication Instructions Recorded mepolizumab 100 mg/mL subcutaneous 100 mg SQ Q4W #1 mL 09/24/22 auto-injector (Nucala) albuterol sulfate 90 mcg/actuation 2 inh inhalation Q6H PRN shortness 04/24/23 aerosol inhaler (Ventolin HFA) of breath or wheezing 90 days #18 grams fluticasone 500 mcg-salmeterol 50 1 inh inhalation BID #180 ea 04/24/23 mcg/dose blistr powdr for inhalation (Advair Diskus) fluticasone propionate 50 1 spray intranasal BID 90 days #16 04/24/23 mcg/actuation nasal grams spray,suspension (Flonase Allergy Relief) ipratropium 0.5 mg-albuterol 3 mg 3 ml inhalation Q6HP PRN shortness 04/24/23 (2.5 mg base)/3 mL nebulization of breath or wheezing 90 days #270 soln mL tiotropium bromide 2.5 2 inh inhalation DAILY 90 days #4 04/24/23 mcg/actuation mist for inhalation grams (Spiriva Respimat) azithromycin 250 mg tablet 250 mg PO DIRECTED #6 tabs 05/12/23 prednisone 20 mg tabl
[2023-05-12 22:36] LABS: Coronavirus 19, PCR Not Detected (NotDetected); Influenza A, PCR Not Detected (NotDetected); Influenza B, PCR Not Detected (NotDetected)
--- NOTE | 2023-05-12 23:05 | PC.NURSE ---
Dr. Collier at
== END 2023-05-12 23:41 | disposition home or self-care (01) ==
PROVIDERS: Emergency Provider Emergency Medicine; PCP Family Medicine
DX: R00.0 Tachycardia, unspecified (principal); J45.51 Severe persistent asthma with (acute) exacerbation; I10 Essential (primary) hypertension; Z87.891 Personal history of nicotine dependence; E87.3 Alkalosis
CPT/HCPCS: 71045; 80053; 82803; 83605; 85025; 87636; 93005; 96361; 96374; 99285; J0696

== ENCOUNTER → 2023-08-01 09:31 | Outpatient (CLI) | payer OTHER, SELFPAY ==
[2023-08-01 10:05] VITALS: PULSE 96; PULSE 99
== END ==
PROVIDERS: PCP Family Medicine; Visit Provider Internal Medicine Pulmonary Disease
DX: R06.02 Shortness of breath (principal)
CPT/HCPCS: 94060; 94640

== ENCOUNTER 2024-09-08 12:33 | Outpatient (CLI) | payer OTHER, SELFPAY ==
[2024-09-08 13:05] VITALS: PULSE 81; PULSE 85
[2024-09-08] MEDS: ALBUTEROL 0.083% 2.5 MG/3 ML NEB IH (13:05)
== END 2024-09-08 23:59 | disposition home or self-care (01) ==
LOC: RT 12:34
PROVIDERS: PCP Family Medicine; Visit Provider Internal Medicine Pulmonary Disease
DX: J44.9 Chronic obstructive pulmonary disease, unspecified (principal)
CPT/HCPCS: 94060; 94640; J7613

== ENCOUNTER 2025-08-22 14:36 | Outpatient (CLI) | payer OTHER, SELFPAY ==
[2025-08-22 15:20] VITALS: PULSE 73
[2025-08-22] MEDS: ALBUTEROL 0.083% 2.5 MG/3 ML NEB IH (15:20)
== END 2025-08-22 23:59 | disposition home or self-care (01) ==
LOC: RT 14:37
PROVIDERS: PCP Family Medicine; Visit Provider Internal Medicine Pulmonary Disease
DX: R94.2 Abnormal results of pulmonary function studies (principal); R06.09 Other forms of dyspnea; R06.02 Shortness of breath
CPT/HCPCS: 94010; 94618; 94640